=== PATIENT | male | born 1990 | race Caucasian/White ===

== ENCOUNTER → 2017-05-15 16:09 | Emergency (ER) | payer OTHER ==
[2017-05-15 18:20] LABS: Hematocrit 39 % (42-52); Hemoglobin 13.1 g/dl (14.0-18.0); Mean Corpuscular HGB Conc 34 g/dl (31-36); Mean Corpuscular Hemoglobin 29 pg (27-31); Mean Corpuscular Volume 85 fL (80-94); Mean Platelet Volume 7 um3 (7.4-10.4); Red Blood Count 4.55 10^6/ul (4.0-5.4); Red Cell Distribution Width 13 % (10.5-15)
[2017-05-15 18:34] LABS: ALT 109 U/L (7-52); AST 39 U/L (13-39); Albumin 4.3 g/dL (3.2-5.2); Alkaline Phosphatase 97 U/L (34-104); Anion Gap 4 mmol/L (2-11); BUN/Creatinine Ratio 15.6 (8-20); Blood Urea Nitrogen 10 mg/dL (6-24); CO2 Carbon Dioxide 31 mmol/L (22-32); Calcium 9.3 mg/dL (8.6-10.3); Chloride 102 mmol/L (101-111); EGFR African American 191.5 (>60); EGFR Non-African American 148.9 (>60); Glucose 113 mg/dL (70-100); Potassium 3.6 mmol/L (3.5-5.0); Sodium 137 mmol/L (133-145); Total Protein 7.3 g/dL (6.4-8.9)
[2017-05-15 19:13] LABS: Acetaminophen < 15 mcg/mL; Alcohol < 10 mg/dL (<10); Salicylate < 2.50 mg/dL (<30)
[2017-05-15 19:24] LABS: TSH (Thyroid Stimulating Horm) 1.23 mcIU/mL (0.34-5.60)
[2017-05-15 22:33] VITALS: BP 114/59
--- NOTE | 2017-05-18 13:35 | ED ---
Bettie Branch Edward, scribed for Mario Ignacio MD on 05/15/17 at 1623 . Psychiatric Complaint - HPI Summary HPI Summary: 26 y/o male BIBA c/o depression. Pt's mom called the parts sales manager. Pt states he was moving when she did so. Pt reports that he broke up with his girlfriend recently which aggravated his depression. Pt also states he has been arrested 6 times recently. PMHx depression. Pt denies recent use of recreational drugs. Denies EtOH use. Smoker. - History Of Current Complaint Chief Complaint: EDMentalHealth Time Seen by Provider: 05/15/17 16:17 Hx Obtained From: Patient Character: Depressed Aggravating Factor(s): Recent Stress Alleviating Factor(s): Nothing Related History: Positive For: Prior Psychiatric Issues - Depression - Allergies/Home Medications Allergies/Adverse Reactions: Allergies Allergy/AdvReac Type Severity Reaction Status Date / Time No Known Allergies Allergy Verified 02/25/16 08:31 PMH/Surg Hx/FS Hx/Imm Hx Previously Healthy: No Endocrine/Hematology History: Denies: Hx Diabetes, Hx Thyroid Disease Cardiovascular History: Denies: Hx Hypertension Respiratory History: Reports: Hx Asthma Denies: Hx Chronic Obstructive Pulmonary Disease (COPD), Hx Seasonal Allergies GI History: Denies: Hx Ulcer Sensory History: Reports: Hx Contacts or Glasses Denies: Other Sensory Impairments Opthamlomology History: Reports: Hx Contacts or Glasses Denies: Other Sensory Impairments Psychiatric History: Reports: Hx Community Mental Health Tx, Hx Substance Abuse Denies: Hx Eating Disorder, Hx of Violent Episodes Against Others - Surgical History Hx Anesthesia Reactions: No Infectious Disease History: Reports: Hx Hepatitis - Hep C Denies: Hx Clostridium Difficile, Hx Human Immunodeficiency Virus (HIV), Hx of Known/Suspected MRSA, Hx Shingles, Hx Tuberculosis, Hx Known/Suspected VRE, Hx Known/Suspected VRSA, History Other Infectious Disease - Family History Known Family History: Positive: Diabetes - Social History Alcohol Use: Occasionally Hx Substance Use: Yes Substance Use Type: Reports: Heroin Substance Use Comment - Amount & Last Used: Hx speed Hx Tobacco Use: Yes Smoking Status (MU): Current Every Day Smoker Type: Cigarettes Amount Used/How Often: 1/2 ppd Length of Time of Smoking/Using Tobacco: 10 years Have You Smoked in the Last Year: Yes Review of Systems Constitutional: Negative Eyes: Negative ENT: Negative Cardiovascular: Negative Respiratory: Negative Gastrointestinal: Negative Genitourinary: Negative Musculoskeletal: Negative Skin: Negative Neurological: Negative Positive: Depressed All Other Systems Reviewed And Are Negative: Yes Physical Exam - Summary Physical Exam Summary: VITAL SIGNS: Reviewed. GENERAL: Patient is a well-developed and nourished male who is lying comfortable in the stretcher. Patient is not in any acute respiratory distress. HEAD AND FACE: No signs of trauma. No ecchymosis, hematomas or skull depressions. No sinus tenderness. EYES: PERRLA, EOMI x 2, No injected conjunctiva, no nystagmus. EARS: Hearing grossly intact. Ear canals and tympanic membranes are within normal limits. MOUTH: Dry oral mucosa. NECK: Supple, trachea is midline, no adenopathy, no JVD, no carotid bruit, no c- spine tenderness, neck with full ROM. CHEST: Symmetric, no tenderness at palpation LUNGS: Clear to auscultation bilaterally. No wheezing or crackles. CVS: Regular rate and rhythm, S1 and S2 present, no murmurs or gallops appreciated. ABDOMEN: Soft, non-tender. No signs of distention. No rebound no guarding, and no masses palpated. Bowel sounds are normal. EXTREMITIES: FROM in all major joints, no edema, no cyanosis or clubbing. NEURO: Alert and oriented x 3. No acute neurological deficits. Speech is normal and follows commands. SKIN: Dry and warm Psych: Flat affect, depressed. Triage Information Reviewed: Yes Vital Signs On Initial Exam: Initial Vitals Temp Pulse Resp BP Pulse Ox 97.7 F 67 18 125/71 100 05/15/17 16:16 05/15/17 16:16 05/15/17 16:16 05/15/17 16:16 05/15/17 16:16 Vital Signs Reviewed: Yes Diagnostics - Vital Signs Vital Signs Temp Pulse Resp BP Pulse Ox 05/15/17 22:44 98.6 F 58 18 114/59 100 05/15/17 22:32 98.6 F 58 16 114/59 100 05/15/17 16:16 97.7 F 67 18 125/71 100 - Laboratory Lab Results: Lab Results 05/15/17 05/15/17 Range/Units 17:51 17:51 WBC 7.0 (3.5-10.8) 10^3/ul RBC 4.55 (4.0-5.4) 10^6/ul Hgb 13.1 L (14.0-18.0) g/dl Hct 39 L (42-52) % MCV 85 (80-94) fL MCH 29 (27-31) pg MCHC 34 (31-36) g/dl RDW 13 (10.5-15) % Plt Count 294 (150-450) 10^3/ul MPV 7 L (7.4-10.4) um3 Neut % (Auto) 40.7 (38-83) % Lymph % (Auto) 44.4 (25-47) % [place] % (Auto) 6.4 (1-9) % Eos % (Auto) 7.6 H (0-6) % Baso % (Auto) 0.9 (0-2) % Absolute Neuts (auto) 2.8 (1.5-7.7) 10^3/ul Absolute Lymphs (auto) 3.1 (1.0-4.8) 10^3/ul Absolute Monos (auto) 0.4 (0-0.8) 10^3/ul Absolute Eos (auto) 0.5 (0-0.6) 10^3/ul Absolute Basos (auto) 0.1 (0-0.2) 10^3/ul Absolute Nucleated RBC 0 10^3/ul Nucleated RBC % 0 Sodium 137 (133-145) mmol/L Potassium 3.6 (3.5-5.0) mmol/L Chloride 102 (101-111) mmol/L Carbon Dioxide 31 (22-32) mmol/L Anion Gap 4 (2-11) mmol/L BUN 10 (6-24) mg/dL Creatinine 0.64 L (0.67-1.17) mg/dL Est GFR ( Amer) 191.5 (>60) Est GFR (Non-Af Amer) 148.9 (>60) BUN/Creatinine Ratio 15.6 (8-20) Glucose 113 H (70-100) mg/dL Calcium 9.3 (8.6-10.3) mg/dL Total Bilirubin 0.30 (0.2-1.0) mg/dL AST 39 (13-39) U/L ALT 109 H (7-52) U/L Alkaline Phosphatase 97 (34-104) U/L Total Protein 7.3 (6.4-8.9) g/dL Albumin 4.3 (3.2-5.2) g/dL Globulin 3.0 (2-4) g/dL Albumin/Globulin Ratio 1.4 (1-3) TSH 1.23 (0.34-5.60) mcIU/mL Salicylates < 2.50 (<30) mg/dL Acetaminophen < 15 mcg/mL Serum Alcohol < 10 (<10) mg/dL Result Diagrams: 05/15/17 17:51 05/15/17 17:51 Lab Statement: Any lab studies that have been ordered have been reviewed, and results considered in the medical decision making process. Course/Dx - Course Assessment/Plan: 26 y/o male BIBA c/o depression. Pt's mom called the parts sales manager. Pt states he was moving when she did so. Pt reports that he broke up with his girlfriend recently which aggravated his depression. Pt also states he has been arrested 6 times recently. PMHx depression. Pt denies recent use of recreational drugs. Denies EtOH use. Smoker. Blood tests without any significant abnormalities. Pt is medically cleared. Pt is awaiting MHU evaluation. Pt will be signed out to Dr. Lentz at shift change. - Differential Dx/Clinical Impression Differential Diagnosis/HQI/PQRI: Positive: Anxiety, Depression, Suicidal Ideation Provider Diagnosis: Depression Discharge - Discharge Plan Condition: Stable Disposition: OTHER Discharge Disposition Comment: Pt will be signed out to the evening Patient Education Materials: Suicide Prevention for Adults (ED) Referrals: [facility] [Outside] [facility] [Outside] [facility] [Outside] - 05/17/17 Zenon Lainez MD [Medical Doctor] - As Soon As Possible No Primary Care Phys,NOPCP [Primary Care Provider] - Additional Instructions: Per completion of a mental health evaluation, you are cleared for release and do not require inpatient psychiatric hospitalization at this time. Please go to nearest emergency room or call 911 if safety concerns arise or condition worsens. IMPORTANT PHONE NUMBERS: [facility] Behavioral Services Unit: [facility] Emergency Room Flex Unit: Suicide Prevention and Crisis Services: National Suicide Prevention Lifeline: [phone]) 351-PXQA (9289) Crisis Text Line: Text HOME to 059017 [employer] [facility]: [employer] Mental Health Association: [facility]: [facility] ([facility]) Outpatient Services: [facility]: [phone] [facility] [employer]: [place] [facility]: [facility] Police:~ [employer] Sheriff: [place] Police Department: REFERRALS: OUTPATIENT SERVICES You have been referred to [facility]. It is our recommendation that you call [facility] to secure an appointment on their next business day. Adults can schedule their first appointment by phone or in person during walk-in hours. Walk-in hours occur Wednesday - Wednesday until 2:30pm. If you require further assistance connecting to outpatient providers, please contact our Mental Health Unit at . [facility] [address], [place] [id number] [facility] [address], [place] [id number] [facility] ([facility]) [address] [place] [phone] Substance abuse evaluation recommended. Please consider treatment at either [facility] or [facility] ([facility]). The [facility] provides information, education, counseling and referral services for area residents and organizations. Should you feel that you are in need of detoxification and rehabilitation, please contact their office. Walk-in evaluations are available on a first-come, first- served basis. The current walk-in hours are Wednesday 8:30am-6:00pm and Wednesday 8:30am-11:00am. [facility] provides both outpatient and residential services. If you are unsure of the level of care needed, please call to schedule an appointment for an individual assessment. [facility] also offers Treatment On Demand; individuals can go to the Outpatient Facility located in [place] on a "walk in as needed basis". Additionally, outpatient counselors are available by phone to offer support during regular business hours Wednesday-Wednesday from 8:30am-7:00pm. EMERGENCY HOUSING Department of [employer] [address] [place] [id number] [facility] [address] [place] [id number] To explore emergency housing options, you should present to the [facility] [employer]. The [facility] [employer] is open Wednesday-Wednesday from 8 :30am to 4:30pm. Should you require housing assistance during after-hours or on a weekend, present to the [facility]. Please be aware that you must arrive early to the [facility] if you would like to secure a bed for the night. The documentation as recorded by the Bettie sparks Edward accurately reflects the service I personally performed and the decisions made by , Mario Ignacio MD.
== END ==
LOC: ED 16:09
DX: F32.9 Major depressive disorder, single episode, unspecified (principal); J45.909 Unspecified asthma, uncomplicated; F11.90 Opioid use, unspecified, uncomplicated; F17.210 Nicotine dependence, cigarettes, uncomplicated
CPT/HCPCS: 36415; 80053; 80320; 80329; 84443; 85025; 99284; G0480

== ENCOUNTER 2017-05-20 21:32 | Inpatient (IN) | payer OTHER ==
[2017-05-20 22:22] LABS: Hematocrit 39 % (42-52); Hemoglobin 12.9 g/dl (14.0-18.0); Mean Corpuscular HGB Conc 33 g/dl (31-36); Mean Corpuscular Hemoglobin 28 pg (27-31); Mean Corpuscular Volume 85 fL (80-94); Mean Platelet Volume 7 um3 (7.4-10.4); Red Blood Count 4.57 10^6/ul (4.0-5.4); Red Cell Distribution Width 14 % (10.5-15); White Blood Count 7.5 10^3/ul (3.5-10.8)
[2017-05-20 22:24] LABS: Urine Bilirubin Negative (Negative); Urine Glucose Negative (Negative); Urine Nitrite Negative (Negative)
[2017-05-20 22:40] LABS: ALT 42 U/L (7-52); AST 26 U/L (13-39); Albumin 4.4 g/dL (3.2-5.2); Alkaline Phosphatase 91 U/L (34-104); Anion Gap 6 mmol/L (2-11); BUN/Creatinine Ratio 27.7 (8-20); Blood Urea Nitrogen 18 mg/dL (6-24); CO2 Carbon Dioxide 27 mmol/L (22-32); Calcium 9.5 mg/dL (8.6-10.3); Chloride 103 mmol/L (101-111); EGFR African American 188.1 (>60); EGFR Non-African American 146.3 (>60); Globulin 2.8 g/dL (2-4); Glucose 88 mg/dL (70-100); Potassium 4.1 mmol/L (3.5-5.0); Sodium 136 mmol/L (133-145); Total Protein 7.2 g/dL (6.4-8.9)
[2017-05-20 22:42] LABS: Benzodiazepine Urine Screen None Detected (None Detect)
[2017-05-20 23:01] LABS: Acetaminophen < 15 mcg/mL; Alcohol < 10 mg/dL (<10); Salicylate < 2.50 mg/dL (<30)
[2017-05-20 23:16] LABS: TSH (Thyroid Stimulating Horm) 0.97 mcIU/mL (0.34-5.60)
--- NOTE | 2017-05-21 02:53 | ED ---
Joslyn Branch Thomas, scribed for Eder Vieyra on 05/20/17 at 2250 . Psychiatric Complaint - HPI Summary HPI Summary: The pt is a 26 y/o M BIBA after EMS was called by his parents. He says he is depressed. Patient admits to LSD use today as well as all sorts of drugs in the last 14 years. He denies ETOH or drug use other than LSD today. He denies SI, HI, and auditory hallucinations. - History Of Current Complaint Chief Complaint: EDMentalHealth Time Seen by Provider: 05/20/17 21:39 Hx Obtained From: Patient, EMS, Medical Records Onset/Duration: Still Present Timing: Constant Severity Currently: Moderate Character: Depressed Aggravating Factor(s): Other - Unknown Alleviating Factor(s): Other - Unknown Associated Signs And Symptoms: Positive: Negative. Negative: Hallucinating Has Suicidal: Denies: Thoughts Has Homicidal: Denies: Thoughts Recent Stressor(s): Unknown Ingestion History: Type/Name Of Drug - Admits to LSD use today - Allergies/Home Medications Allergies/Adverse Reactions: Allergies Allergy/AdvReac Type Severity Reaction Status Date / Time No Known Allergies Allergy Verified 02/25/16 08:31 PMH/Surg Hx/FS Hx/Imm Hx Previously Healthy: No Endocrine/Hematology History: Denies: Hx Diabetes, Hx Thyroid Disease Cardiovascular History: Denies: Hx Hypertension Respiratory History: Reports: Hx Asthma Denies: Hx Chronic Obstructive Pulmonary Disease (COPD), Hx Seasonal Allergies GI History: Denies: Hx Ulcer Sensory History: Reports: Hx Contacts or Glasses Denies: Other Sensory Impairments Opthamlomology History: Reports: Hx Contacts or Glasses Denies: Other Sensory Impairments Psychiatric History: Reports: Hx Community Mental Health Tx, Hx Substance Abuse Denies: Hx Eating Disorder, Hx of Violent Episodes Against Others - Surgical History Hx Anesthesia Reactions: No Infectious Disease History: No Infectious Disease History: Reports: Hx Hepatitis - Hep C Denies: Hx Clostridium Difficile, Hx Human Immunodeficiency Virus (HIV), Hx of Known/Suspected MRSA, Hx Shingles, Hx Tuberculosis, Hx Known/Suspected VRE, Hx Known/Suspected VRSA, History Other Infectious Disease, Traveled Outside the [place] in Last 30 Days - Family History Known Family History: Positive: Diabetes - Social History Alcohol Use: Occasionally Hx Substance Use: Yes Substance Use Type: Reports: Heroin Substance Use Comment - Amount & Last Used: Hx speed/LSD Hx Tobacco Use: Yes Smoking Status (MU): Current Every Day Smoker Type: Cigarettes Amount Used/How Often: 1/2 ppd Length of Time of Smoking/Using Tobacco: 10 years Have You Smoked in the Last Year: Yes Review of Systems Negative: Fever Positive: Depressed, Other - LSD use; NEGATIVE: SI/HI, auditory hallucinations All Other Systems Reviewed And Are Negative: Yes Physical Exam - Summary Physical Exam Summary: Appearance: Well appearing, no pain distress. Skin: Warm, dry, reflects adequate perfusion. Head/face: Normal. Eyes: EOMI, GLENDY. ENT: Normal. Neck: Supple, nontender. Respiratory: CTA, breath sounds present. Cardiovascular: RRR, pulses symmetrical. Abdomen: Nontender, soft. Bowel: Present. Musculoskeletal: Normal, strength/ROM intact. Neuro: Normal, sensory motor intact, A&Ox3. PSYCHIATRIC: depressed affect. Triage Information Reviewed: Yes Vital Signs On Initial Exam: Initial Vitals Temp Pulse Resp BP Pulse Ox 97.5 F 60 16 118/70 98 05/20/17 21:35 05/20/17 21:35 05/20/17 21:35 05/20/17 21:35 05/20/17 21:35 Vital Signs Reviewed: Yes Diagnostics - Vital Signs Vital Signs Temp Pulse Resp BP Pulse Ox 05/20/17 21:35 97.5 F 60 16 118/70 98 - Laboratory Lab Results: Lab Results 05/20/17 05/20/17 05/20/17 Range/Units 22:05 22:05 22:10 WBC (3.5-10.8) 10^3/ul RBC (4.0-5.4) 10^6/ul Hgb (14.0-18.0) g/dl Hct (42-52) % MCV (80-94) fL MCH (27-31) pg MCHC (31-36) g/dl RDW (10.5-15) % Plt Count (150-450) 10^3/ul MPV (7.4-10.4) um3 Neut % (Auto) (38-83) % Lymph % (Auto) (25-47) % [place] % (Auto) (1-9) % Eos % (Auto) (0-6) % Baso % (Auto) (0-2) % Absolute Neuts (auto) (1.5-7.7) 10^3/ul Absolute Lymphs (auto) (1.0-4.8) 10^3/ul Absolute Monos (auto) (0-0.8) 10^3/ul Absolute Eos (auto) (0-0.6) 10^3/ul Absolute Basos (auto) (0-0.2) 10^3/ul Absolute Nucleated RBC 10^3/ul Nucleated RBC % Sodium 136 (133-145) mmol/L Potassium 4.1 (3.5-5.0) mmol/L Chloride 103 (101-111) mmol/L Carbon Dioxide 27 (22-32) mmol/L Anion Gap 6 (2-11) mmol/L BUN 18 (6-24) mg/dL Creatinine 0.65 L (0.67-1.17) mg/dL Est GFR ( Amer) 188.1 (>60) Est GFR (Non-Af Amer) 146.3 (>60) BUN/Creatinine Ratio 27.7 H (8-20) Glucose 88 (70-100) mg/dL Calcium 9.5 (8.6-10.3) mg/dL Total Bilirubin 0.50 (0.2-1.0) mg/dL AST 26 (13-39) U/L ALT 42 (7-52) U/L Alkaline Phosphatase 91 (34-104) U/L Total Protein 7.2 (6.4-8.9) g/dL Albumin 4.4 (3.2-5.2) g/dL Globulin 2.8 (2-4) g/dL Albumin/Globulin Ratio 1.6 (1-3) TSH Pending Urine Color Yellow Urine Appearance Cloudy Urine pH 5.0 (5-9) Ur Specific [place] 1.030 (1.010-1.030) Urine Protein Negative (Negative) Urine Ketones Trace H (Negative) Urine Blood Negative (Negative) Urine Nitrate Negative (Negative) Urine Bilirubin Negative (Negative) Urine Urobilinogen Negative (Negative) Ur Leukocyte Esterase Negative (Negative) Urine Glucose Negative (Negative) Salicylates Pending Urine Opiates Screen None detected (None Detect) Acetaminophen Pending Ur Barbiturates Screen None detected (None Detect) Ur Phencyclidine Scrn None detected (None Detect) Ur Amphetamines Screen None detected (None Detect) U Benzodiazepines Scrn None detected (None Detect) Urine Cocaine Screen Presumptive positive H (None Detect) U Cannabinoids Screen Presumptive positive H (None Detect) Serum Alcohol Pending 05/20/17 Range/Units 22:10 WBC 7.5 (3.5-10.8) 10^3/ul RBC 4.57 (4.0-5.4) 10^6/ul Hgb 12.9 L (14.0-18.0) g/dl Hct 39 L (42-52) % MCV 85 (80-94) fL MCH 28 (27-31) pg MCHC 33 (31-36) g/dl RDW 14 (10.5-15) % Plt Count 366 (150-450) 10^3/ul MPV 7 L (7.4-10.4) um3 Neut % (Auto) 46.5 (38-83) % Lymph % (Auto) 35.8 (25-47) % [place] % (Auto) 9.2 H (1-9) % Eos % (Auto) 7.8 H (0-6) % Baso % (Auto) 0.7 (0-2) % Absolute Neuts (auto) 3.5 (1.5-7.7) 10^3/ul Absolute Lymphs (auto) 2.7 (1.0-4.8) 10^3/ul Absolute Monos (auto) 0.7 (0-0.8) 10^3/ul Absolute Eos (auto) 0.6 (0-0.6) 10^3/ul Absolute Basos (auto) 0.1 (0-0.2) 10^3/ul Absolute Nucleated RBC 0.01 10^3/ul Nucleated RBC % 0.1 Sodium (133-145) mmol/L Potassium (3.5-5.0) mmol/L Chloride (101-111) mmol/L Carbon Dioxide (22-32) mmol/L Anion Gap (2-11) mmol/L BUN (6-24) mg/dL Creatinine (0.67-1.17) mg/dL Est GFR ( Amer) (>60) Est GFR (Non-Af Amer) (>60) BUN/Creatinine Ratio (8-20) Glucose (70-100) mg/dL Calcium (8.6-10.3) mg/dL Total Bilirubin (0.2-1.0) mg/dL AST (13-39) U/L ALT (7-52) U/L Alkaline Phosphatase (34-104) U/L Total Protein (6.4-8.9) g/dL Albumin (3.2-5.2) g/dL Globulin (2-4) g/dL Albumin/Globulin Ratio (1-3) TSH Urine Color Urine Appearance Urine pH (5-9) Ur Specific [place] (1.010-1.030) Urine Protein (Negative) Urine Ketones (Negative) Urine Blood (Negative) Urine Nitrate (Negative) Urine Bilirubin (Negative) Urine Urobilinogen (Negative) Ur Leukocyte Esterase (Negative) Urine Glucose (Negative) Salicylates Urine Opiates Screen (None Detect) Acetaminophen Ur Barbiturates Screen (None Detect) Ur Phencyclidine Scrn (None Detect) Ur Amphetamines Screen (None Detect) U Benzodiazepines Scrn (None Detect) Urine Cocaine Screen (None Detect) U Cannabinoids Screen (None Detect) Serum Alcohol Result Diagrams: 05/20/17 22:10 05/20/17 22:10 Lab Statement: Any lab studies that have been ordered have been reviewed, and results considered in the medical decision making process. Course/Dx - Course Course Of Treatment: Cleared for MHE at 23:52. Assessment/Plan: Patient admitted to [facility]. - Differential Dx/Clinical Impression Provider Diagnosis: nonspecific psychosis Discharge - Discharge Plan Condition: Fair Disposition: ADMITTED TO [facility] Referrals: Zenon Lainez MD [Primary Care Provider] - The documentation as recorded by the Joslyn sparks Thomas accurately reflects the service I personally performed and the decisions made by Azalia moseley Emmanuel.
[2017-05-21] MEDS ORDERED: Acetaminophen TAB* 325 MG PO PRN ×2 (03:56→16:34)
[2017-05-21] MEDS ORDERED: Nicotine Inhaler* 10 MG AMP INH PRN ×2 (03:56→16:34)
[2017-05-21] MEDS ORDERED: Al Hydrox/Mg Hydrox/Simet LIQ* 30 ML UDC PO PRN ×2 (03:56→16:34)
[2017-05-21] MEDS: Vitamin THERAPEUTIC TAB PO SCH (09:50)
[2017-05-21] MEDS: Nicotine PATCH 21 MG/24 HR* PATCH TRANSDERM SCH (09:51)
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
[2017-05-21] MEDS ORDERED: Nicotine GUM* 2 MG PO PRN (16:34)
[2017-05-21 18:15] LABS: HDL Cholesterol 33.8 mg/dL
[2017-05-21] MEDS: traZODone TAB* 100 MG PO SCH (21:06)
[2017-05-21] MEDS: Nicotine Patch Removal NOTE PATCH OFF SCH (21:07)
[2017-05-22] MEDS: Mouth Piece, Nicotine* 1 EACH CARTRIDGE INH ONE ×2 (05:20→08:55)
[2017-05-22] MEDS: buPROPion SR TAB.SR* 100 MG PO SCH ×2 (07:41→14:42)
[2017-05-22] MEDS: Buprenorphine/Naloxone 8-2 MG SL TAB* 1 TAB PO SCH (08:54)
[2017-05-22] MEDS ORDERED: Mouth Piece, Nicotine* 1 EACH CARTRIDGE ONE (08:55)
[2017-05-22] MEDS ORDERED: Vitamin THERAPEUTIC TAB PO SCH (09:00)
[2017-05-22] MEDS: Nicotine PATCH 21 MG/24 HR* PATCH TRANSDERM SCH (09:09)
[2017-05-22] MEDS: Vitamin THERAPEUTIC TAB PO SCH (09:10)
--- NOTE | 2017-05-22 16:45 | PN ---
Subjective - Subjective Service Type: 82378 Hosp care 15 min low complexity Subjective: Patient is somewhat bizarre and diffuse during our interaction. Not sure where he will live or what provider he will follow up with after discharge, particularly for continuation of his suboxone therapy. He denies SI and staff does not report any behavioral issues. Objective - Appearance Appearance: Well Developed/Nourished Dysmorphic Features: No Hygiene: Normal Grooming: Well Kept - Behavior Psychomotor Activities: Normal Exhibits Abnormal Movement: No - Attitude and Relatedness Attitude and Relatedness: Cooperative Eye Contact: Fair - Speech Quality: Unpressured Latencies: Normal Quantity: Appropriate - Mood Patient's Decription of Mood: "Fine" - Affect Observed Affect: Fair Affect Consistent with: Euthymia - Thought Process Patient's Thought Process: Coherent Thought Content: No Passive Wish, No Suicidal Planning, No Homicidal Ideation, No Paranoid Ideation - Sensorium Experiencing Hallucinations: No, Sensorium is Clear Type of Hallucinations: Visual: No, Auditory: No, Command: No - Level of Consciousness Level of Consciousness: Alert Orientation: Yes Intact, Yes Orientated to Time, Yes Orientated to Place, Yes Orientated to Person - Impulse Control Impulse Control: Tenuous - Insight and Judgement Insight and Judgement: Fair - Group Participation Particating in Group Activities: Yes - Medication Management Medication Management Adherence: Yes Assessment - Assessment Merits Inpatient Hospitalization: For Immediate Safety, For Stabilization Inpatient DSM-IV Dx: Unspecified Mood DO Clinical Impression: 26 y.o. single, white male with a history of active polysubstance use patterns ( cocaine, hallucinogens, opioids, cannabis) and mood instability arrives on a voluntary basis seeking inpatient psychiatric treatment for SI with plan to jump into a gorge. Plan - Plan Treatment Plan: Name: DAWSON LEIGH Birthdate: 1990 [id number] Patient treated with suboxone, bupropion and trazodone therapies. Needs SW assistance with housing and follow up outpatient care. Likely in need of substance abuse rehabilitation. Continue inpatient treatment. Continued Medication Management: Different Medication Medications: Current Medications Acetaminophen (Tylenol Tab*) 650 mg PO Q4H PRN PRN Reason: PAIN or TEMP > 101 F Al Hydrox/Mg Hydrox/Simethicone (Maalox Plus*) 30 ml PO Q4H PRN PRN Reason: INDIGESTION Buprenorphine/Naloxone (Suboxone 8-2 Mg Sl Tab*) 1 tab.sl PO DAILY [facility] Last Admin: 05/22/17 08:54 Dose: 1 tab.sl Bupropion HCl (Wellbutrin Sr Tab*) 100 mg PO BID@0700,1400 [facility] Last Admin: 05/22/17 14:42 Dose: 100 mg Multivitamins (Theragran Tab*) 1 tab PO DAILY [facility] Last Admin: 05/22/17 09:10 Dose: Not Given Nicotine (Nicotine Inhaler*) 10 mg INH Q2H PRN PRN Reason: CRAVING Last Admin: 05/22/17 08:55 Dose: 10 mg Nicotine (Nicotine Patch 21 Mg/24 Hr*) 1 patch TRANSDERM DAILY [facility] Last Admin: 05/22/17 09:09 Dose: Not Given Nicotine Polacrilex (Nicotine Gum*) 2 mg PO Q2H PRN PRN Reason: CRAVING Pharmacy Profile Note (Nicotine Patch Removal Note*) 1 note PATCH OFF 2100 [facility] Last Admin: 05/21/17 21:07 Dose: Not Given Trazodone HCl (Desyrel Tab*) 100 mg PO BEDTIME [facility] Last Admin: 05/21/17 21:06 Dose: 100 mg - Discharge Plan Discharge Plan: Inpatient Hospitalization
[2017-05-22] MEDS: Nicotine Patch Removal NOTE PATCH OFF SCH (21:14)
[2017-05-22] MEDS: traZODone TAB* 100 MG PO SCH (21:22)
[2017-05-23] MEDS: Vitamin THERAPEUTIC TAB PO SCH (09:24)
[2017-05-23] MEDS: Nicotine GUM* 2 MG PO PRN (09:24)
[2017-05-23] MEDS: Nicotine PATCH 21 MG/24 HR* PATCH TRANSDERM SCH (09:25)
[2017-05-23] MEDS: Buprenorphine/Naloxone 8-2 MG SL TAB* 1 TAB PO SCH (09:26)
[2017-05-23] MEDS: buPROPion SR TAB.SR* 100 MG PO SCH ×2 (11:46→14:12)
[2017-05-23] MEDS: traZODone TAB* 100 MG PO SCH (20:50)
[2017-05-23] MEDS: Nicotine Patch Removal NOTE PATCH OFF SCH (20:50)
[2017-05-24] MEDS: Vitamin THERAPEUTIC TAB PO SCH (10:08)
[2017-05-24] MEDS: buPROPion SR TAB.SR* 100 MG PO SCH ×2 (10:08→14:50)
[2017-05-24] MEDS: Buprenorphine/Naloxone 8-2 MG SL TAB* 1 TAB PO SCH (10:08)
[2017-05-24] MEDS: Nicotine PATCH 21 MG/24 HR* PATCH TRANSDERM SCH (10:08)
--- NOTE | 2017-05-24 11:54 | PN ---
Subjective - Subjective Service Type: 09082 Hosp care 15 min low complexity Subjective: Patient continues to improve in regard to clarity of thought and in appropriateness when interacting with others. Patient's TP is linear and goal directed. Patient's affect is full and eye contact is appropriate. He is future oriented in his desire to maintain his sobriety from IV Heroin. He reports due to his insurance ending, he hadn't seen Dr. Lainez for recent mx with Suboxone. He reports his insurance has been re-started and he will likely return to Dr. Lainez for Suboxone mx. Patient informed unit SW will work to make that appt. Patient reports desire to get re-connected outpt drug rehab with care. He reports a good visit from his sister and his happy with his family support. Patient reports good benefit to mood and energy level on Wellbutrin. He fair sleep and appetite. He denies med s/e's. He reports no SI/HI or AH/VH over the weekend nor today. He has had no behavioral issues on the unit. Assessment - Assessment Merits Inpatient Hospitalization: For Immediate Safety, For Stabilization Inpatient DSM-IV Dx: ASSESSMENT: . 1. Substance induced mood d/o. 2. LSD use d/o, severe. 3. MDMA use d/o, severe. 4. Cocaine use d/o , severe. 5. Cannabis use d/o, severe. 6. Unspecified PD, cluster B traits Plan - Plan Treatment Plan: Name: DAWSON LEIGH Birthdate: 1990 [id number] PLAN: ------ 1. Continue admission to [facility] for safety and symptom mx. 2. Continue Wellbutrin at 100mg po BID for depressive symptoms. 3. Continue Trazodone 100mg po qhs for insomnia. 4. Continue Suboxone at home dose of 8-2 SL daily for Cravings of Opioid use d/ o. 5. Continue compiling collateral information from family and outpt providers. 6. Patient to participate in milieu activities and groups. Continued Medication Management: Start Medication Medications: Current Medications Acetaminophen (Tylenol Tab*) 650 mg PO Q4H PRN PRN Reason: PAIN or TEMP > 101 F Al Hydrox/Mg Hydrox/Simethicone (Maalox Plus*) 30 ml PO Q4H PRN PRN Reason: INDIGESTION Buprenorphine/Naloxone (Suboxone 8-2 Mg Sl Tab*) 1 tab.sl PO DAILY [facility] Last Admin: 05/24/17 10:08 Dose: 1 tab.sl Bupropion HCl (Wellbutrin Sr Tab*) 100 mg PO BID@0700,1400 [facility] Last Admin: 05/24/17 10:08 Dose: 100 mg Multivitamins (Theragran Tab*) 1 tab PO DAILY [facility] Last Admin: 05/24/17 10:08 Dose: 1 tab Nicotine (Nicotine Inhaler*) 10 mg INH Q2H PRN PRN Reason: CRAVING Last Admin: 05/22/17 08:55 Dose: 10 mg Nicotine (Nicotine Patch 21 Mg/24 Hr*) 1 patch TRANSDERM DAILY [facility] Last Admin: 05/24/17 10:08 Dose: 1 patch Nicotine Polacrilex (Nicotine Gum*) 2 mg PO Q2H PRN PRN Reason: CRAVING Last Admin: 05/23/17 09:24 Dose: 2 mg Pharmacy Profile Note (Nicotine Patch Removal Note*) 1 note PATCH OFF 2099 [facility] Last Admin: 05/23/17 20:50 Dose: 1 note Trazodone HCl (Desyrel Tab*) 100 mg PO BEDTIME [facility] Last Admin: 05/23/17 20:50 Dose: 100 mg - Discharge Plan Discharge Plan: Drug/Alcohol Rehab Outpatient [facility]
[2017-05-24] MEDS: Nicotine GUM* 2 MG PO PRN (15:23)
[2017-05-24] MEDS: traZODone TAB* 100 MG PO SCH (20:45)
[2017-05-24] MEDS: Nicotine Patch Removal NOTE PATCH OFF SCH (20:46)
[2017-05-25] MEDS: Nicotine PATCH 21 MG/24 HR* PATCH TRANSDERM SCH (07:55)
[2017-05-25] MEDS: Vitamin THERAPEUTIC TAB PO SCH (07:55)
[2017-05-25] MEDS: Buprenorphine/Naloxone 8-2 MG SL TAB* 1 TAB PO SCH (07:55)
[2017-05-25 10:05] VITALS: BP 103/68
[2017-05-25] MEDS: buPROPion SR TAB.SR* 100 MG PO SCH (11:49)
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
== END 2017-05-25 13:00 | disposition home or self-care (01) | DRG 774 ==
LOC: ED 21:32 → BSU 05-21 03:09
PROVIDERS: ADMIT Psychiatry & Neurology Psychiatry; ATTEND Psychiatry & Neurology Psychiatry
DX: F16.14 Hallucinogen abuse with hallucinogen-induced mood disorder (principal); F14.10 Cocaine abuse, uncomplicated; R45.851 Suicidal ideations; F12.10 Cannabis abuse, uncomplicated; F15.10 Other stimulant abuse, uncomplicated; F60.9 Personality disorder, unspecified; Z86.19 Personal history of other infectious and parasitic diseases; Z81.8 Family history of other mental and behavioral disorders; Z79.899 Other long term (current) drug therapy
CPT/HCPCS: 36415; 80053; 80061; 80307; 80320; 80329; 81003; 83036; 84443; 85025; 86703; 99222; 99231; 99238; A9270-GY; G0480

== ENCOUNTER 2017-06-04 22:39 | Inpatient (IN) | payer OTHER ==
[2017-06-04 23:25] LABS: Hematocrit 36 % (42-52); Hemoglobin 12.2 g/dl (14.0-18.0); Mean Corpuscular HGB Conc 33 g/dl (31-36); Mean Corpuscular Hemoglobin 29 pg (27-31); Mean Corpuscular Volume 85 fL (80-94); Mean Platelet Volume 7 um3 (7.4-10.4); Red Blood Count 4.26 10^6/ul (4.0-5.4); Red Cell Distribution Width 14 % (10.5-15); White Blood Count 5.8 10^3/ul (3.5-10.8)
[2017-06-04 23:39] LABS: ALT 30 U/L (7-52); AST 24 U/L (13-39); Albumin 3.8 g/dL (3.2-5.2); Alkaline Phosphatase 68 U/L (34-104); Anion Gap 4 mmol/L (2-11); BUN/Creatinine Ratio 27.6 (8-20); Blood Urea Nitrogen 16 mg/dL (6-24); CO2 Carbon Dioxide 26 mmol/L (22-32); Calcium 9.1 mg/dL (8.6-10.3); Chloride 106 mmol/L (101-111); EGFR African American 214.6 (>60); EGFR Non-African American 166.8 (>60); Globulin 2.7 g/dL (2-4); Glucose 88 mg/dL (70-100); Potassium 4.2 mmol/L (3.5-5.0); Sodium 136 mmol/L (133-145); Total Protein 6.5 g/dL (6.4-8.9)
[2017-06-04 23:41] LABS: Urine Bilirubin Negative (Negative); Urine Glucose Negative (Negative); Urine Nitrite Negative (Negative)
[2017-06-04 23:46] LABS: Acetaminophen < 15 mcg/mL; Alcohol < 10 mg/dL (<10); Salicylate < 2.50 mg/dL (<30)
[2017-06-04 23:58] LABS: Benzodiazepine Urine Screen None Detected (None Detect)
[2017-06-05 00:01] LABS: TSH (Thyroid Stimulating Horm) 1.15 mcIU/mL (0.34-5.60)
--- NOTE | 2017-06-05 01:11 | ED ---
Psychiatric Complaint - HPI Summary HPI Summary: Patient presents to the ED with feelings of suicide. He states he has been an IV drug user for 11 years with meth and heroin as drugs of choice. He is trying to get clean. He would like to go to rehab. He has most recently been on suboxone and meth. Last use 2 days ago. He denies any w/d symptoms at this time. Denies fevers, sweats or chills. Denies ETOH use. States to recently using IV heroin, LSD and others, was here a couple of weeks ago for mental health. when discharged "wasnt released with suboxone and I just lost my job". Patient states he feels suicidal, was going to jump off [employer]. has previous attempts in past. states he has pain in lower back and legs that is from "coming off suboxone." Has been on 8mg daily in the past. He states it was not working though and would like to get clean from "everything." - History Of Current Complaint Chief Complaint: EDMentalHealth Time Seen by Provider: 06/04/17 23:13 Hx Obtained From: Patient Onset/Duration: Sudden Onset Timing: Constant Severity Initially: Moderate Severity Currently: Moderate Character: Fearful, Anxious, Frustrated Aggravating Factor(s): Other - lost job Alleviating Factor(s): Nothing Has Suicidal: Reports: Thoughts Has Homicidal: Reports: Thoughts - Risk Factor(s) Completed Suicide Risk Factors: Negative - Allergies/Home Medications Allergies/Adverse Reactions: Allergies Allergy/AdvReac Type Severity Reaction Status Date / Time No Known Allergies Allergy Verified 06/04/17 22:48 PMH/Surg Hx/FS Hx/Imm Hx Previously Healthy: Yes Endocrine/Hematology History: Denies: Hx Diabetes, Hx Thyroid Disease Cardiovascular History: Denies: Hx Hypertension Respiratory History: Reports: Hx Asthma Denies: Hx Chronic Obstructive Pulmonary Disease (COPD), Hx Seasonal Allergies GI History: Denies: Hx Ulcer Sensory History: Denies: Hx Contacts or Glasses, Hx Hearing Aid, Other Sensory Impairments Opthamlomology History: Denies: Hx Contacts or Glasses, Other Sensory Impairments Psychiatric History: Reports: Hx Depression, Hx Inpatient Treatment, Hx Community Mental Health Tx, Hx Substance Abuse Denies: Hx Eating Disorder, Hx of Violent Episodes Against Others - Surgical History Hx Anesthesia Reactions: No Infectious Disease History: No Infectious Disease History: Reports: Hx Hepatitis - Hep C Denies: Hx Clostridium Difficile, Hx Human Immunodeficiency Virus (HIV), Hx of Known/Suspected MRSA, Hx Shingles, Hx Tuberculosis, Hx Known/Suspected VRE, Hx Known/Suspected VRSA, History Other Infectious Disease, Traveled Outside the [place] in Last 30 Days - Family History Known Family History: Positive: None, Diabetes Family History: R & n/C - Social History Occupation: Unemployed Lives: With Family Alcohol Use: Denies use, but alcohol in belongings. Alcohol Amount: UNKNOWN; PATIENT ASLEEP DURING ASSESSMENT Hx Substance Use: Yes Substance Use Type: Reports: Cocaine, Heroin, Marijuana, Synthetic Drugs Substance Use Comment - Amount & Last Used: Hx speed/LSD Hx Tobacco Use: Yes Smoking Status (MU): Current Every Day Smoker Type: Cigarettes Amount Used/How Often: 1/2 PPD Length of Time of Smoking/Using Tobacco: 10 years Have You Smoked in the Last Year: Yes Review of Systems Constitutional: Negative Cardiovascular: Negative Gastrointestinal: Negative Genitourinary: Negative Positive: no symptoms reported, see HPI Skin: Negative Positive: Anxious, Depressed All Other Systems Reviewed And Are Negative: Yes Physical Exam Triage Information Reviewed: Yes Vital Signs On Initial Exam: Initial Vitals Temp Pulse Resp BP Pulse Ox 98.7 F 76 14 125/72 100 06/04/17 22:44 06/04/17 22:44 06/04/17 22:44 06/04/17 22:44 06/04/17 22:44 Vital Signs Reviewed: Yes Appearance: Positive: Well-Appearing, Well-Nourished Skin: Positive: Warm, Skin Color Reflects Adequate Perfusion Head/Face: Positive: Normal Head/Face Inspection Eyes: Positive: EOMI, GLENDY, Conjunctiva Clear Respiratory/Lung Sounds: Positive: Clear to Auscultation, Breath Sounds Present Cardiovascular: Positive: Normal, RRR, Pulses are Symmetrical in both Upper and Lower Extremities Musculoskeletal: Positive: Strength/ROM Intact Neurological: Positive: Speech Normal Psychiatric: Positive: Anxious, Depressed - Toby Coma Scale Coma Scale Total: 15 Diagnostics - Vital Signs Vital Signs Temp Pulse Resp BP Pulse Ox 06/05/17 00:48 98.8 F 58 16 129/61 100 06/04/17 22:44 98.7 F 76 14 125/72 100 - Laboratory Lab Results: Lab Results 11/03/17 11/03/17 11/03/17 Range/Units 23:07 23:09 23:18 WBC 5.8 (3.5-10.8) 10^3/ul RBC 4.26 (4.0-5.4) 10^6/ul Hgb 12.2 L (14.0-18.0) g/dl Hct 36 L (42-52) % MCV 85 (80-94) fL MCH 29 (27-31) pg MCHC 33 (31-36) g/dl RDW 14 (10.5-15) % Plt Count 290 (150-450) 10^3/ul MPV 7 L (7.4-10.4) um3 Neut % (Auto) 39.2 (38-83) % Lymph % (Auto) 39.6 (25-47) % [place] % (Auto) 8.5 (1-9) % Eos % (Auto) 11.6 H (0-6) % Baso % (Auto) 1.1 (0-2) % Absolute Neuts (auto) 2.3 (1.5-7.7) 10^3/ul Absolute Lymphs (auto) 2.3 (1.0-4.8) 10^3/ul Absolute Monos (auto) 0.5 (0-0.8) 10^3/ul Absolute Eos (auto) 0.7 H (0-0.6) 10^3/ul Absolute Basos (auto) 0.1 (0-0.2) 10^3/ul Absolute Nucleated RBC 0 10^3/ul Nucleated RBC % 0.1 Sodium 136 (133-145) mmol/L Potassium 4.2 (3.5-5.0) mmol/L Chloride 106 (101-111) mmol/L Carbon Dioxide 26 (22-32) mmol/L Anion Gap 4 (2-11) mmol/L BUN 16 (6-24) mg/dL Creatinine 0.58 L (0.67-1.17) mg/dL Est GFR ( Amer) 214.6 (>60) Est GFR (Non-Af Amer) 166.8 (>60) BUN/Creatinine Ratio 27.6 H (8-20) Glucose 88 (70-100) mg/dL Calcium 9.1 (8.6-10.3) mg/dL Total Bilirubin 0.20 (0.2-1.0) mg/dL AST 24 (13-39) U/L ALT 30 (7-52) U/L Alkaline Phosphatase 68 (34-104) U/L Total Protein 6.5 (6.4-8.9) g/dL Albumin 3.8 (3.2-5.2) g/dL Globulin 2.7 (2-4) g/dL Albumin/Globulin Ratio 1.4 (1-3) TSH 1.15 (0.34-5.60) mcIU/mL Urine Color Urine Appearance Urine pH (5-9) Ur Specific [place] (1.010-1.030) Urine Protein (Negative) Urine Ketones (Negative) Urine Blood (Negative) Urine Nitrate (Negative) Urine Bilirubin (Negative) Urine Urobilinogen (Negative) Ur Leukocyte Esterase (Negative) Urine Glucose (Negative) Salicylates < 2.50 (<30) mg/dL Urine Opiates Screen None detected (None Detect) Acetaminophen < 15 mcg/mL Ur Barbiturates Screen None detected (None Detect) Ur Phencyclidine Scrn None detected (None Detect) Ur Amphetamines Screen None detected (None Detect) U Benzodiazepines Scrn None detected (None Detect) Urine Cocaine Screen None detected (None Detect) U Cannabinoids Screen None detected (None Detect) Serum Alcohol < 10 (<10) mg/dL 06/04/17 Range/Units 23:18 WBC (3.5-10.8) 10^3/ul RBC (4.0-5.4) 10^6/ul Hgb (14.0-18.0) g/dl Hct (42-52) % MCV (80-94) fL MCH (27-31) pg MCHC (31-36) g/dl RDW (10.5-15) % Plt Count (150-450) 10^3/ul MPV (7.4-10.4) um3 Neut % (Auto) (38-83) % Lymph % (Auto) (25-47) % [place] % (Auto) (1-9) % Eos % (Auto) (0-6) % Baso % (Auto) (0-2) % Absolute Neuts (auto) (1.5-7.7) 10^3/ul Absolute Lymphs (auto) (1.0-4.8) 10^3/ul Absolute Monos (auto) (0-0.8) 10^3/ul Absolute Eos (auto) (0-0.6) 10^3/ul Absolute Basos (auto) (0-0.2) 10^3/ul Absolute Nucleated RBC 10^3/ul Nucleated RBC % Sodium (133-145) mmol/L Potassium (3.5-5.0) mmol/L Chloride (101-111) mmol/L Carbon Dioxide (22-32) mmol/L Anion Gap (2-11) mmol/L BUN (6-24) mg/dL Creatinine (0.67-1.17) mg/dL Est GFR ( Amer) (>60) Est GFR (Non-Af Amer) (>60) BUN/Creatinine Ratio (8-20) Glucose (70-100) mg/dL Calcium (8.6-10.3) mg/dL Total Bilirubin (0.2-1.0) mg/dL AST (13-39) U/L ALT (7-52) U/L Alkaline Phosphatase (34-104) U/L Total Protein (6.4-8.9) g/dL Albumin (3.2-5.2) g/dL Globulin (2-4) g/dL Albumin/Globulin Ratio (1-3) TSH (0.34-5.60) mcIU/mL Urine Color Yellow Urine Appearance Clear Urine pH 5.0 (5-9) Ur Specific [place] 1.024 (1.010-1.030) Urine Protein Negative (Negative) Urine Ketones Negative (Negative) Urine Blood Negative (Negative) Urine Nitrate Negative (Negative) Urine Bilirubin Negative (Negative) Urine Urobilinogen Negative (Negative) Ur Leukocyte Esterase Negative (Negative) Urine Glucose Negative (Negative) Salicylates (<30) mg/dL Urine Opiates Screen (None Detect) Acetaminophen mcg/mL Ur Barbiturates Screen (None Detect) Ur Phencyclidine Scrn (None Detect) Ur Amphetamines Screen (None Detect) U Benzodiazepines Scrn (None Detect) Urine Cocaine Screen (None Detect) U Cannabinoids Screen (None Detect) Serum Alcohol (<10) mg/dL Result Diagrams: 06/04/17 23:07 06/04/17 23:09 Lab Statement: Any lab studies that have been ordered have been reviewed, and results considered in the medical decision making process. Course/Dx - Course Course Of Treatment: Patient is evaluated for MHU. Notes to suicidal thoughts. Depression, anxiety and recently lost job. Most recently on heroin, meth and suboxone (8mg ) prescribed by Dr. Lainez. Would like to go to rehab from here. He is cleared for MHU. Signed out to Dr. Vieyra at 2am pending MHU. - Differential Dx/Clinical Impression Differential Diagnosis/HQI/PQRI: Positive: Suicide Attempt, Suicidal Ideation, Suicidal Gesture Provider Diagnosis: Drug abuse, Suicidal ideation Discharge - Discharge Plan Condition: Stable Disposition: OTHER Discharge Disposition Comment: Signed out to Dr. Vieyra at 2am.
--- NOTE | 2017-06-05 06:14 | ED ---
Rajan Branch Abhishek, scribed for Eder Vieyra on 06/05/17 at 0605 . Progress - Progress Note Progress Note: This patient was signed out from JESSICA Atkinson, pending disposition, awaiting MHE. MHE evaluation completed. The patients condition is stable and will be discharged to home with Dx of substance abuse. Pt is recommended follow up with PCP within 3 days. - Consult/PCP Time Called: 12:30 Course/Dx - Course Course Of Treatment: This patient was signed out from JESSICA Atkinson, pending disposition, awaiting MHE. MHE evaluation completed. The patients condition is stable and will be discharged to home with Dx of substance abuse. Pt is recommended follow up with PCP within 3 days. - Diagnoses Provider Diagnoses: Substance abuse The documentation as recorded by the Rajan sparks Abhishek accurately reflects the service I personally performed and the decisions made by Azalia moseley Emmanuel.
--- NOTE | 2017-06-05 10:41 | PN ---
ED Flex Patient Progress Note Subjective: This is a 26 year-old M who is pending reevaluation by psychiatrist. He voices no complaints. He is currently sleeping in room. He ate breakfast this morning. Objective: Vitals: Most recent vital signs documented below. General NAD, Alert and oriented x3. Heart: rrr at 70 bpm Lungs: CTA or with rales, rhonchi, wheezing abd: soft nontender Laboratory: Current laboratory results documented below. Assessment: substance abuse Plan: Pending psychiatric to reevaluate for disposition Condition:Stable Vital Signs Temp Pulse Resp BP Pulse Ox 99.6 F 76 14 99/61 99 06/05/17 07:32 06/05/17 07:32 06/05/17 07:32 06/05/17 07:32 06/05/17 07:32 Lab Results - Entire Visit 06/04/17 06/04/17 06/04/17 23:18 23:18 23:09 WBC RBC Hgb Hct MCV MCH MCHC RDW Plt Count MPV Neut % (Auto) Lymph % (Auto) [place] % (Auto) Eos % (Auto) Baso % (Auto) Absolute Neuts (auto) Absolute Lymphs (auto) Absolute Monos (auto) Absolute Eos (auto) Absolute Basos (auto) Absolute Nucleated RBC Nucleated RBC % Sodium 136 Potassium 4.2 Chloride 106 Carbon Dioxide 26 Anion Gap 4 BUN 16 Creatinine 0.58 L Est GFR ( Amer) 214.6 Est GFR (Non-Af Amer) 166.8 BUN/Creatinine Ratio 27.6 H Glucose 88 Calcium 9.1 Total Bilirubin 0.20 AST 24 ALT 30 Alkaline Phosphatase 68 Total Protein 6.5 Albumin 3.8 Globulin 2.7 Albumin/Globulin Ratio 1.4 TSH 1.15 Urine Color Yellow Urine Appearance Clear Urine pH 5.0 Ur Specific [place] 1.024 Urine Protein Negative Urine Ketones Negative Urine Blood Negative Urine Nitrate Negative Urine Bilirubin Negative Urine Urobilinogen Negative Ur Leukocyte Esterase Negative Urine Glucose Negative Salicylates < 2.50 Urine Opiates Screen None detected Acetaminophen < 15 Ur Barbiturates Screen None detected Ur Phencyclidine Scrn None detected Ur Amphetamines Screen None detected U Benzodiazepines Scrn None detected Urine Cocaine Screen None detected U Cannabinoids Screen None detected Serum Alcohol < 10 06/04/17 23:07 WBC 5.8 RBC 4.26 Hgb 12.2 L Hct 36 L MCV 85 MCH 29 MCHC 33 RDW 14 Plt Count 290 MPV 7 L Neut % (Auto) 39.2 Lymph % (Auto) 39.6 [place] % (Auto) 8.5 Eos % (Auto) 11.6 H Baso % (Auto) 1.1 Absolute Neuts (auto) 2.3 Absolute Lymphs (auto) 2.3 Absolute Monos (auto) 0.5 Absolute Eos (auto) 0.7 H Absolute Basos (auto) 0.1 Absolute Nucleated RBC 0 Nucleated RBC % 0.1 Sodium Potassium Chloride Carbon Dioxide Anion Gap BUN Creatinine Est GFR ( Amer) Est GFR (Non-Af Amer) BUN/Creatinine Ratio Glucose Calcium Total Bilirubin AST ALT Alkaline Phosphatase Total Protein Albumin Globulin Albumin/Globulin Ratio TSH Urine Color Urine Appearance Urine pH Ur Specific [place] Urine Protein Urine Ketones Urine Blood Urine Nitrate Urine Bilirubin Urine Urobilinogen Ur Leukocyte Esterase Urine Glucose Salicylates Urine Opiates Screen Acetaminophen Ur Barbiturates Screen Ur Phencyclidine Scrn Ur Amphetamines Screen U Benzodiazepines Scrn Urine Cocaine Screen U Cannabinoids Screen Serum Alcohol
[2017-06-06] MEDS ORDERED: buPROPion SR TAB.SR* 100 MG PO ONE (13:19)
[2017-06-06] MEDS ORDERED: Acetaminophen TAB* 325 MG PO ONE (13:19)
--- NOTE | 2017-06-06 13:19 | ED ---
Rajan Branch Abhishek, scribed for Melina Linares MD on 06/06/17 at 1224 . Progress - Progress Note Progress Note: 12:45 06/06/17---26 yo M signed out from Ellie Atkinson pending disposition. Pt is in Flex 1. Asked by MARGARITA Herndon movement education specialist, to evaluate pt as family express concern about pt's safety. Pt's father and pt's brother's partner Stephen, have been calling concerned about pt. Pt does not want to speak to family at this time, but pt gives permission for family to have information about him. Pt has hx substance abuse, heroin in the past, methamphetamine 3 days ago, is on suboxone and wellbutrin. States he is still suicidal, wound [place]. Has past hx of [place] and heroin overdoses. Pt has no physical complaints of CP, SOB, abd pain, N, V or dizziness. States he has some chronic low back pain which he attributes to being without his suboxone. No injury to his back. Will speak to Dr. Marcano and recommend admission for this pt. Will give wellbutrin, and acetaminophen. Exam: Pt alert, calm, cooperative. HEENT: normal appearance. Neck supple Cor S1 S2 Lungs clear Back: no spinal tenderness or signs of trauma Extrem: no edema or trauma Neuro Alert, Ox3, no focal deficit. Moves all extremities. 2200 06/06/17: Care to Dr. Vieyra at change of shift. Dr. Vieyra aware of my recommendation that pt have inpatient care for suicidal ideation and that Dr. Marcano concurs with this recommendation for inpatient admission. Pt remains in Flex unit at the time of this change of shift. Chepe Linares MD. - Consult/PCP Time Called: 12:30 Course/Dx - Course Course Of Treatment: pt re-evaluated by ED MD 06/06/17 12:45pm. Pt remains suicidal. Discussed with Dr. Marcano 13:00. Plan is to have pt be inpatient whether that means transfer, or await bed at [facility]. Pt will be held for transfer or inpatient admission. - Diagnoses Provider Diagnoses: Substance abuse, Suicidal ideation - Provider Notifications Discussed Care Of Patient With: Bhargavi Marcano - pt will be inpatient. He will not be discharged. Instructed by Provider To: Admit As Inpatient - may need transfer if no [facility] bed The documentation as recorded by the Rajan sparks Abhishek accurately reflects the service I personally performed and the decisions made by me, Melina Linares MD.
--- NOTE | 2017-06-06 15:50 | PN ---
Progress Note - Progress Note Date of Service: 06/06/17 Note: Saw patient in Flex ED. In no acute distress. Asking when he can come to the BSU. Vaguely suicidal when asked. Keeps saying if discharged he might jump off a bridge which he did in the past. No where to go, no money, no support in place. Wants to give up drugs by going to an inpatient rehab. No evidence of mood, thoughts or perceptual disturbances. Family is concerned and [place] doctors [place] [facility] concerns. Patient reports that he does any street drugs that's available. 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 Cannot go to his mother's house because of her BF. Sleeps in his mother's van. Plan is to hold him in FLEX either to transfer to another hospital or admit on BSU when bed available.
--- NOTE | 2017-06-06 18:13 | PN ---
ED Flex Patient Progress Note Subjective: This is a 26 year-old M who is pending admission to [facility] or transfer to another psychiatric facility depending on availability secondary to SI and substance abuse. Pt offers no complaints at this time. He slept well last night. He ate his dinner. Objective: Vitals: Most recent vital signs documented below. General NAD, Alert and oriented x3. Heart: rrr at 70 bpm Lungs: CTA or with rales, rhonchi, wheezing abd: nontender, normoactive bowel sounds Laboratory: Current laboratory results documented below. Assessment: substance abuse Suicidal ideation Plan: Pending psychiatric to transfer or admit, will follow up daily bed available. Condition: stable Vital Signs Temp Pulse Resp BP Pulse Ox 98.5 F 81 16 117/70 99 06/06/17 15:55 06/06/17 15:55 06/06/17 15:55 06/06/17 15:55 06/06/17 08:04 Lab Results - Entire Visit 06/04/17 06/04/17 06/04/17 23:18 23:18 23:09 WBC RBC Hgb Hct MCV MCH MCHC RDW Plt Count MPV Neut % (Auto) Lymph % (Auto) [place] % (Auto) Eos % (Auto) Baso % (Auto) Absolute Neuts (auto) Absolute Lymphs (auto) Absolute Monos (auto) Absolute Eos (auto) Absolute Basos (auto) Absolute Nucleated RBC Nucleated RBC % Sodium 136 Potassium 4.2 Chloride 106 Carbon Dioxide 26 Anion Gap 4 BUN 16 Creatinine 0.58 L Est GFR ( Amer) 214.6 Est GFR (Non-Af Amer) 166.8 BUN/Creatinine Ratio 27.6 H Glucose 88 Calcium 9.1 Total Bilirubin 0.20 AST 24 ALT 30 Alkaline Phosphatase 68 Total Protein 6.5 Albumin 3.8 Globulin 2.7 Albumin/Globulin Ratio 1.4 TSH 1.15 Urine Color Yellow Urine Appearance Clear Urine pH 5.0 Ur Specific [employer] 1.024 Urine Protein Negative Urine Ketones Negative Urine Blood Negative Urine Nitrate Negative Urine Bilirubin Negative Urine Urobilinogen Negative Ur Leukocyte Esterase Negative Urine Glucose Negative Salicylates < 2.50 Urine Opiates Screen None detected Acetaminophen < 15 Ur Barbiturates Screen None detected Ur Phencyclidine Scrn None detected Ur Amphetamines Screen None detected U Benzodiazepines Scrn None detected Urine Cocaine Screen None detected U Cannabinoids Screen None detected Serum Alcohol < 10 06/04/17 23:07 WBC 5.8 RBC 4.26 Hgb 12.2 L Hct 36 L MCV 85 MCH 29 MCHC 33 RDW 14 Plt Count 290 MPV 7 L Neut % (Auto) 39.2 Lymph % (Auto) 39.6 [place] % (Auto) 8.5 Eos % (Auto) 11.6 H Baso % (Auto) 1.1 Absolute Neuts (auto) 2.3 Absolute Lymphs (auto) 2.3 Absolute Monos (auto) 0.5 Absolute Eos (auto) 0.7 H Absolute Basos (auto) 0.1 Absolute Nucleated RBC 0 Nucleated RBC % 0.1 Sodium Potassium Chloride Carbon Dioxide Anion Gap BUN Creatinine Est GFR ( Amer) Est GFR (Non-Af Amer) BUN/Creatinine Ratio Glucose Calcium Total Bilirubin AST ALT Alkaline Phosphatase Total Protein Albumin Globulin Albumin/Globulin Ratio TSH Urine Color Urine Appearance Urine pH Ur Specific [employer] Urine Protein Urine Ketones Urine Blood Urine Nitrate Urine Bilirubin Urine Urobilinogen Ur Leukocyte Esterase Urine Glucose Salicylates Urine Opiates Screen Acetaminophen Ur Barbiturates Screen Ur Phencyclidine Scrn Ur Amphetamines Screen U Benzodiazepines Scrn Urine Cocaine Screen U Cannabinoids Screen Serum Alcohol
--- NOTE | 2017-06-07 06:40 | ED ---
Joslyn Branch Thomas, scribed for Eder Vieyra on 06/07/17 at 0635 . Progress - Progress Note Progress Note: The patient is a sign out at shift change from Dr. Linares. The patient is pending mental health evaluation and awaiting disposition. The patient will be signed out to the next ED attending at shift change. Course/Dx - Diagnoses Provider Diagnoses: Depressed The documentation as recorded by the Joslyn sparks Thomas accurately reflects the service I personally performed and the decisions made by Azalia moseley Emmanuel.
--- NOTE | 2017-06-07 10:44 | PN ---
ED Flex Patient Progress Note Subjective: This is a 26 year-old M who is pending admission to [facility] having been abusing methamphetamines and LSD and c/o SI. Patient agrees to be referred to inpatient rehab and will fill out a JT packet prior to admission to the BSU today. 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 Vital Signs Temp Pulse Resp BP Pulse Ox 98.5 F 81 16 117/70 99 06/06/17 15:55 06/06/17 15:55 06/06/17 15:55 06/06/17 15:55 06/06/17 08:04 Lab Results - Entire Visit 06/04/17 06/04/17 06/04/17 23:18 23:18 23:09 WBC RBC Hgb Hct MCV MCH MCHC RDW Plt Count MPV Neut % (Auto) Lymph % (Auto) [place] % (Auto) Eos % (Auto) Baso % (Auto) Absolute Neuts (auto) Absolute Lymphs (auto) Absolute Monos (auto) Absolute Eos (auto) Absolute Basos (auto) Absolute Nucleated RBC Nucleated RBC % Sodium 136 Potassium 4.2 Chloride 106 Carbon Dioxide 26 Anion Gap 4 BUN 16 Creatinine 0.58 L Est GFR ( Amer) 214.6 Est GFR (Non-Af Amer) 166.8 BUN/Creatinine Ratio 27.6 H Glucose 88 Calcium 9.1 Total Bilirubin 0.20 AST 24 ALT 30 Alkaline Phosphatase 68 Total Protein 6.5 Albumin 3.8 Globulin 2.7 Albumin/Globulin Ratio 1.4 TSH 1.15 Urine Color Yellow Urine Appearance Clear Urine pH 5.0 Ur Specific [place] 1.024 Urine Protein Negative Urine Ketones Negative Urine Blood Negative Urine Nitrate Negative Urine Bilirubin Negative Urine Urobilinogen Negative Ur Leukocyte Esterase Negative Urine Glucose Negative Salicylates < 2.50 Urine Opiates Screen None detected Acetaminophen < 15 Ur Barbiturates Screen None detected Ur Phencyclidine Scrn None detected Ur Amphetamines Screen None detected U Benzodiazepines Scrn None detected Urine Cocaine Screen None detected U Cannabinoids Screen None detected Serum Alcohol < 10 06/04/17 23:07 WBC 5.8 RBC 4.26 Hgb 12.2 L Hct 36 L MCV 85 MCH 29 MCHC 33 RDW 14 Plt Count 290 MPV 7 L Neut % (Auto) 39.2 Lymph % (Auto) 39.6 [place] % (Auto) 8.5 Eos % (Auto) 11.6 H Baso % (Auto) 1.1 Absolute Neuts (auto) 2.3 Absolute Lymphs (auto) 2.3 Absolute Monos (auto) 0.5 Absolute Eos (auto) 0.7 H Absolute Basos (auto) 0.1 Absolute Nucleated RBC 0 Nucleated RBC % 0.1 Sodium Potassium Chloride Carbon Dioxide Anion Gap BUN Creatinine Est GFR ( Amer) Est GFR (Non-Af Amer) BUN/Creatinine Ratio Glucose Calcium Total Bilirubin AST ALT Alkaline Phosphatase Total Protein Albumin Globulin Albumin/Globulin Ratio TSH Urine Color Urine Appearance Urine pH Ur Specific [place] Urine Protein Urine Ketones Urine Blood Urine Nitrate Urine Bilirubin Urine Urobilinogen Ur Leukocyte Esterase Urine Glucose Salicylates Urine Opiates Screen Acetaminophen Ur Barbiturates Screen Ur Phencyclidine Scrn Ur Amphetamines Screen U Benzodiazepines Scrn Urine Cocaine Screen U Cannabinoids Screen Serum Alcohol
[2017-06-07] MEDS ORDERED: Al Hydrox/Mg Hydrox/Simet LIQ* 30 ML UDC PO PRN (12:21)
[2017-06-07] MEDS ORDERED: Mouth Piece, Nicotine* 1 EACH CARTRIDGE ONE (18:17)
[2017-06-07] MEDS: Nicotine GUM* 2 MG PO PRN (18:18)
[2017-06-07] MEDS: Nicotine Inhaler* 10 MG AMP INH PRN (18:18)
[2017-06-07] MEDS: Acetaminophen TAB* 325 MG PO PRN (20:25)
[2017-06-07] MEDS: buPROPion SR TAB.SR* 100 MG PO SCH (20:25)
[2017-06-07] MEDS ORDERED: traZODone TAB* 100 MG PO SCH (21:00)
[2017-06-08] MEDS: Acetaminophen TAB* 325 MG PO PRN ×2 (07:22→16:12)
[2017-06-08] MEDS: Nicotine GUM* 2 MG PO PRN ×4 (07:22→16:13)
[2017-06-08] MEDS: Vitamin THERAPEUTIC TAB PO SCH (09:49)
[2017-06-08] MEDS: buPROPion SR TAB.SR* 100 MG PO SCH ×2 (09:49→20:33)
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
[2017-06-08] MEDS: Methocarbamol TAB* 500 MG PO SCH ×2 (13:48→20:32)
[2017-06-08] MEDS: QUEtiapine TAB* 100 MG PO SCH (20:33)
[2017-06-09] MEDS: Methocarbamol TAB* 500 MG PO SCH ×2 (08:32→20:03)
[2017-06-09] MEDS: buPROPion SR TAB.SR* 100 MG PO SCH ×2 (08:32→20:03)
[2017-06-09] MEDS: Vitamin THERAPEUTIC TAB PO SCH (08:34)
[2017-06-09] MEDS: Acetaminophen TAB* 325 MG PO PRN (08:34)
--- NOTE | 2017-06-09 10:25 | PN ---
Subjective - Subjective Service Type: 23942 Hosp care 15 min low complexity Subjective: Patient continues to improve in regard to clarity of thought and in appropriateness when interacting with others. Patient's TP is linear and goal directed. Patient's affect is full, but eye contact continues to be intense. He is future oriented in his desire to discharge and transfer bed to bed to an inpatient SATP(substance abuse treatment program). Patient informed his Suboxone will be re-started and patient encouraged to take as Rx'd. Patient has been med compliant and denies med s/e' s. He fair sleep and appetite. He reports no SI/HI or AH/VH. He has had no behavioral issues on the unit. Objective - Appearance Appearance: Thin Framed Dysmorphic Features: No Hygiene: Normal Grooming: Fairly Well Kept - Behavior Psychomotor Activities: Normal Exhibits Abnormal Movement: No - Attitude and Relatedness Attitude and Relatedness: Cooperative Eye Contact: Fair - Speech Quality: Unpressured Latencies: Normal Quantity: Copious - Mood Patient's Decription of Mood: "Anxious" - Affect Observed Affect: Expansive Affect Consistent with: Dysphoria - Thought Process Patient's Thought Process: Coherent Thought Content: No Passive Wish, No Suicidal Planning, No Homicidal Ideation, No Paranoid Ideation - Sensorium Experiencing Hallucinations: No, Sensorium is Clear Type of Hallucinations: Visual: No, Auditory: No, Command: No - Level of Consciousness Level of Consciousness: Alert Orientation: Yes Intact, Yes Orientated to Time, Yes Orientated to Place, Yes Orientated to Person - Impulse Control Impulse Control: Intact - Insight and Judgement Insight and Judgement: Fair - Group Participation Particating in Group Activities: Yes - Medication Management Medication Management Adherence: Yes Assessment - Assessment Merits Inpatient Hospitalization: For Immediate Safety, For Stabilization Inpatient DSM-IV Dx: 1. Substance induced mood d/o. 2. Substance induced psychotic d/o. 3. LSD use d/o, severe. 4. Methamphetamine use d/o, severe. 5. MDMA use d/o, severe. 6. Cocaine use d/o, severe. 7. Cannabis use d/o, severe. 8. Unspecified PD, cluster B traits Plan - Plan Treatment Plan: Name: DAWSON LEIGH Birthdate: 1990 [id number] PLAN: ------ 1. Continue admission to [facility] for safety and symptom mx. 2. Continue Wellbutrin at 100mg po BID for depressive symptoms. 3. Per discussion with treatment team, will re-start Suboxone at 4-1 SL qam for opioid craving mx as patient is extremely high risk of relapse on IV Heroin. 4. Trazodone D/C'd as patient reports recent ineffectiveness. 5. Continue Seroquel 100mg po qhs for insomnia/ anxiety. 6. Continue 750mg po BID until discharge for muscle spasm associated with opioid w/d. 7. Inpt SW submitting multiple applications for inpt [facility], preferably those that allow continuation of Suboxone mx. 8. Continue compiling collateral information from family and outpt providers. 9. Patient to participate in milieu activities and groups. Continued Medication Management: Continue Outpt Medication Medications: Current Medications Acetaminophen (Tylenol Tab*) 650 mg PO Q4H PRN PRN Reason: for pain; or Temp >101 F Last Admin: 06/09/17 08:34 Dose: 650 mg Al Hydrox/Mg Hydrox/Simethicone (Maalox Plus*) 30 ml PO Q4H PRN PRN Reason: INDIGESTION Bupropion HCl (Wellbutrin Sr Tab*) 100 mg PO BID [facility] Last Admin: 06/09/17 08:32 Dose: 100 mg Methocarbamol (Robaxin Tab*) 750 mg PO BID [facility] Last Admin: 06/09/17 08:32 Dose: 750 mg Multivitamins (Theragran Tab*) 1 tab PO DAILY [facility] Last Admin: 06/09/17 08:34 Dose: 1 tab Nicotine (Nicotine Inhaler*) 10 mg INH Q2H PRN PRN Reason: CRAVING Last Admin: 06/07/17 18:18 Dose: 10 mg Nicotine Polacrilex (Nicotine Gum*) 2 mg PO Q2H PRN PRN Reason: CRAVING Last Admin: 06/08/17 16:13 Dose: 2 mg Quetiapine Fumarate (Seroquel Tab*) 100 mg PO BEDTIME [facility] Last Admin: 06/08/17 20:33 Dose: 100 mg - Discharge Plan Discharge Plan: Outpatient Follow Up Outpatient Program: [facility]
[2017-06-09] MEDS: Buprenorphine/Naloxone 8-2 MG SL TAB* 1 TAB PO SCH (11:09)
--- NOTE | 2017-06-09 16:32 | PN ---
MHU: Group Therapy Note - Service Type Service Type: [id number] Group Psychotherapy - Medication Education Group: Patient joined group late, remained in behavioral control. Patient noted to be circumstantial about substances that were no particularly on topic.
[2017-06-09] MEDS: Nicotine Inhaler* 10 MG AMP INH PRN (16:34)
[2017-06-09] MEDS: Nicotine GUM* 2 MG PO PRN ×2 (16:35→18:57)
[2017-06-09] MEDS: QUEtiapine TAB* 100 MG PO SCH (20:03)
[2017-06-10] MEDS: Methocarbamol TAB* 500 MG PO SCH ×2 (08:01→20:36)
[2017-06-10] MEDS: buPROPion SR TAB.SR* 100 MG PO SCH ×2 (08:03→20:35)
[2017-06-10] MEDS: Vitamin THERAPEUTIC TAB PO SCH (08:03)
[2017-06-10] MEDS: Buprenorphine/Naloxone 8-2 MG SL TAB* 1 TAB PO SCH (08:03)
[2017-06-10] MEDS: Nicotine GUM* 2 MG PO PRN ×3 (11:05→19:07)
--- NOTE | 2017-06-10 12:03 | PN ---
MHU: Group Therapy Note - Service Type Service Type: [id number] Group Psychotherapy - Cognitive Behavioral Group Therapy ( CBT):Patient was attentive and participatory in CBT programming this morning, and remained in good behavioral control. Patient expressed positive insights regarding relevant treatment interventions and goals.
--- NOTE | 2017-06-10 16:30 | PN ---
Subjective - Subjective Service Type: 04400 Hosp care 15 min low complexity Subjective: Patient noted to be visible in the milieu, social, pleasant, and participating in groups and milieu activities. Patient's TP is linear and goal directed. Patient's affect is full and eye contact is wnl. Patient reports noticing increased clarity of thought and increased energy/ motivation. He again discusses his desire to be sober. He expresses increased insight as to the destructive nature drugs have had on his life recently. Patient has been med compliant and denies med s/e's. He reports fair sleep and appetite. He reports no SI/HI or AH/VH. He has had no behavioral issues on the unit. Objective - Appearance Appearance: Thin Framed Dysmorphic Features: No Hygiene: Normal Grooming: Fairly Well Kept - Behavior Psychomotor Activities: Normal Exhibits Abnormal Movement: No - Attitude and Relatedness Attitude and Relatedness: Cooperative Eye Contact: Good - Speech Quality: Unpressured Latencies: Normal Quantity: Appropriate - Mood Patient's Decription of Mood: "Okay" - Affect Observed Affect: Fair Affect Consistent with: Euthymia - Thought Process Patient's Thought Process: Coherent Thought Content: No Passive Wish, No Suicidal Planning, No Homicidal Ideation, No Paranoid Ideation - Sensorium Experiencing Hallucinations: No, Sensorium is Clear Type of Hallucinations: Visual: No, Auditory: No, Command: No - Level of Consciousness Level of Consciousness: Alert Orientation: Yes Intact, Yes Orientated to Time, Yes Orientated to Place, Yes Orientated to Person - Impulse Control Impulse Control: Intact - Insight and Judgement Insight and Judgement: Fair - Group Participation Particating in Group Activities: Yes - Medication Management Medication Management Adherence: Yes Assessment - Assessment Merits Inpatient Hospitalization: For Immediate Safety, For Stabilization Inpatient DSM-IV Dx: 1. Substance induced mood d/o. 2. Substance induced psychotic d/o. 3. LSD use d/o, severe. 4. Methamphetamine use d/o, severe. 5. MDMA use d/o, severe. 6. Cocaine use d/o, severe. 7. Cannabis use d/o, severe. 8. Unspecified PD, cluster B traits Plan - Plan Treatment Plan: Name: DAWSON LEIGH Birthdate: 1990 [id number] PLAN: ------ 1. Continue admission to [facility] for safety and symptom mx. 2. Continue Wellbutrin at 100mg po BID for depressive symptoms. 3. Continue Suboxone at 4-1 SL qam for opioid craving mx as patient is extremely high risk of relapse on IV Heroin. 4. Trazodone D/C'd as patient reports recent ineffectiveness. 5. Continue Seroquel 100mg po qhs for insomnia/ anxiety. 6. Continue 750mg po BID until discharge for muscle spasm associated with opioid w/d. 7. Inpt SW submitting multiple applications for inpt [facility], preferably those that allow continuation of Suboxone mx. 8. Continue compiling collateral information from family and outpt providers. 9. Patient to participate in milieu activities and groups. Continued Medication Management: Start Medication Medications: Current Medications Acetaminophen (Tylenol Tab*) 650 mg PO Q4H PRN PRN Reason: for pain; or Temp >101 F Last Admin: 06/09/17 08:34 Dose: 650 mg Al Hydrox/Mg Hydrox/Simethicone (Maalox Plus*) 30 ml PO Q4H PRN PRN Reason: INDIGESTION Buprenorphine/Naloxone (Suboxone 8-2 Mg Sl Tab*) 0.5 tab.sl PO DAILY [facility] Last Admin: 06/10/17 08:03 Dose: 0.5 tab.sl Bupropion HCl (Wellbutrin Sr Tab*) 100 mg PO BID [facility] Last Admin: 06/10/17 08:03 Dose: 100 mg Methocarbamol (Robaxin Tab*) 750 mg PO BID [facility] Last Admin: 06/10/17 08:01 Dose: 750 mg Multivitamins (Theragran Tab*) 1 tab PO DAILY [facility] Last Admin: 06/10/17 08:03 Dose: 1 tab Nicotine (Nicotine Inhaler*) 10 mg INH Q2H PRN PRN Reason: CRAVING Last Admin: 06/09/17 16:34 Dose: 10 mg Nicotine Polacrilex (Nicotine Gum*) 2 mg PO Q2H PRN PRN Reason: CRAVING Last Admin: 06/10/17 16:05 Dose: 2 mg Quetiapine Fumarate (Seroquel Tab*) 100 mg PO BEDTIME [facility] Last Admin: 06/09/17 20:03 Dose: 100 mg - Discharge Plan Discharge Plan: Drug/Alcohol Rehab Outpatient Program: [facility]
[2017-06-10] MEDS: QUEtiapine TAB* 100 MG PO SCH (20:35)
[2017-06-11] MEDS: Vitamin THERAPEUTIC TAB PO SCH (07:48)
[2017-06-11] MEDS: buPROPion SR TAB.SR* 100 MG PO SCH ×2 (07:48→20:17)
[2017-06-11] MEDS: Methocarbamol TAB* 500 MG PO SCH (07:48)
[2017-06-11] MEDS: Buprenorphine/Naloxone 8-2 MG SL TAB* 1 TAB PO SCH (07:49)
[2017-06-11] MEDS: Nicotine GUM* 2 MG PO PRN ×5 (08:25→19:13)
--- NOTE | 2017-06-11 09:46 | PN ---
Subjective - Subjective Service Type: [id number] Hosp care 15 min low complexity Subjective: Patient noted to be visible in the milieu, social, pleasant, and participating in groups and milieu activities. Patient today shows no further signs of LSD/Meth w/d symptoms. Patient's TP is linear and goal directed. Patient's affect is full and eye contact is wnl. Patient has had good participation in all groups. He requests medical intervention regarding a tick attached to his skin. He was informed this would be ordered and tick removed. He is hopeful of bed [facility] bed [facility] Patient reports visit from family today which lifted his mood. Patient has been med compliant and denies med s/e's. He reports fair sleep and appetite. He reports no SI/HI or AH/VH. He has had no behavioral issues on the unit. Objective - Appearance Appearance: Thin Framed Dysmorphic Features: No Hygiene: Normal Grooming: Fairly Well Kept - Behavior Psychomotor Activities: Normal Exhibits Abnormal Movement: No - Attitude and Relatedness Attitude and Relatedness: Cooperative Eye Contact: Good - Speech Quality: Unpressured Latencies: Normal Quantity: Appropriate - Mood Patient's Decription of Mood: "Good" - Affect Observed Affect: Fair Affect Consistent with: Euthymia - Thought Process Patient's Thought Process: Coherent Thought Content: No Passive Wish, No Suicidal Planning, No Homicidal Ideation, No Paranoid Ideation - Sensorium Experiencing Hallucinations: No, Sensorium is Clear Type of Hallucinations: Visual: No, Auditory: No, Command: No - Level of Consciousness Level of Consciousness: Alert Orientation: Yes Intact, Yes Orientated to Time, Yes Orientated to Place, Yes Orientated to Person - Impulse Control Impulse Control: Intact - Insight and Judgement Insight and Judgement: Fair - Group Participation Particating in Group Activities: Yes - Medication Management Medication Management Adherence: Yes Assessment - Assessment Merits Inpatient Hospitalization: For Immediate Safety, For Stabilization Inpatient DSM-IV Dx: 1. Substance induced mood d/o. 2. Substance induced psychotic d/o. 3. LSD use d/o, severe. 4. Methamphetamine use d/o, severe. 5. MDMA use d/o, severe. 6. Cocaine use d/o, severe. 7. Cannabis use d/o, severe. 8. Unspecified PD, cluster B traits. Plan - Plan Treatment Plan: Name: DAWSON LEIGH Birthdate: 1990 [id number] PLAN: ------ 1. Continue admission to [facility] for safety and symptom mx. 2. Continue Wellbutrin at 100mg po BID for depressive symptoms. 3. Continue Suboxone at 4-1 SL qam for opioid craving mx as patient is extremely high risk of relapse on IV Heroin. 4. Trazodone D/C'd as patient reports recent ineffectiveness. 5. Continue Seroquel 100mg po qhs for insomnia/ anxiety. 6. Will D/C Methcarbamol as patient is back on Suboxone for mx of Opioid use d/ o. 7. Inpt SW submitting multiple applications for inpt [facility], preferably those that allow continuation of Suboxone mx. SW received a phone call from De[facility] at [facility] requesting to do phone screening with patient. 8. Continue compiling collateral information from family and outpt providers. 9. Patient to participate in milieu activities and groups. Continued Medication Management: Start Medication Medications: Current Medications Acetaminophen (Tylenol Tab*) 650 mg PO Q4H PRN PRN Reason: for pain; or Temp >101 F Last Admin: 06/09/17 08:34 Dose: 650 mg Al Hydrox/Mg Hydrox/Simethicone (Maalox Plus*) 30 ml PO Q4H PRN PRN Reason: INDIGESTION Buprenorphine/Naloxone (Suboxone 8-2 Mg Sl Tab*) 0.5 tab.sl PO DAILY [facility] Last Admin: 06/11/17 07:49 Dose: 0.5 tab.sl Bupropion HCl (Wellbutrin Sr Tab*) 100 mg PO BID [facility] Last Admin: 06/11/17 07:48 Dose: 100 mg Methocarbamol (Robaxin Tab*) 750 mg PO BID [facility] Last Admin: 06/11/17 07:48 Dose: 750 mg Multivitamins (Theragran Tab*) 1 tab PO DAILY [facility] Last Admin: 06/11/17 07:48 Dose: 1 tab Nicotine (Nicotine Inhaler*) 10 mg INH Q2H PRN PRN Reason: CRAVING Last Admin: 06/09/17 16:34 Dose: 10 mg Nicotine Polacrilex (Nicotine Gum*) 2 mg PO Q2H PRN PRN Reason: CRAVING Last Admin: 06/11/17 08:25 Dose: 2 mg Quetiapine Fumarate (Seroquel Tab*) 100 mg PO BEDTIME [facility] Last Admin: 06/10/17 20:35 Dose: 100 mg - Discharge Plan Discharge Plan: Drug/Alcohol Rehab Outpatient Program: [facility]
[2017-06-11] MEDS: Nicotine Inhaler* 10 MG AMP INH PRN ×2 (17:06→20:18)
[2017-06-11] MEDS: QUEtiapine TAB* 100 MG PO SCH (20:17)
[2017-06-12] MEDS: Buprenorphine/Naloxone 8-2 MG SL TAB* 1 TAB PO SCH (08:12)
[2017-06-12] MEDS: Vitamin THERAPEUTIC TAB PO SCH (08:13)
[2017-06-12] MEDS: buPROPion SR TAB.SR* 100 MG PO SCH ×2 (08:13→20:37)
[2017-06-12] MEDS: Nicotine Inhaler* 10 MG AMP INH PRN (10:05)
[2017-06-12] MEDS: Nicotine GUM* 2 MG PO PRN ×3 (10:05→20:39)
[2017-06-12] MEDS: QUEtiapine TAB* 100 MG PO SCH (20:37)
[2017-06-12] MEDS: Nicotine Patch Removal NOTE FOLLOW UP SCH (20:37)
[2017-06-13] MEDS: Vitamin THERAPEUTIC TAB PO SCH (08:05)
[2017-06-13] MEDS: buPROPion SR TAB.SR* 100 MG PO SCH ×2 (08:05→20:24)
[2017-06-13] MEDS: Buprenorphine/Naloxone 8-2 MG SL TAB* 1 TAB PO SCH (08:05)
[2017-06-13] MEDS: Nicotine PATCH 21 MG/24 HR* PATCH TRANSDERM SCH (08:35)
[2017-06-13] MEDS: Nicotine GUM* 2 MG PO PRN ×4 (08:36→22:11)
[2017-06-13] MEDS: Nicotine Patch Removal NOTE FOLLOW UP SCH (20:23)
[2017-06-13] MEDS: QUEtiapine TAB* 100 MG PO SCH (20:24)
[2017-06-14] MEDS: Buprenorphine/Naloxone 8-2 MG SL TAB* 1 TAB PO SCH (08:07)
[2017-06-14] MEDS: Vitamin THERAPEUTIC TAB PO SCH (08:08)
[2017-06-14] MEDS: buPROPion SR TAB.SR* 100 MG PO SCH (08:08)
[2017-06-14] MEDS: Nicotine PATCH 21 MG/24 HR* PATCH TRANSDERM SCH (08:08)
[2017-06-14] MEDS: Nicotine GUM* 2 MG PO PRN ×5 (08:22→20:01)
[2017-06-14] MEDS: Nicotine Inhaler* 10 MG AMP INH PRN ×2 (08:56→17:11)
--- NOTE | 2017-06-14 13:20 | PN ---
Subjective - Subjective Service Type: 54770 Hosp care 15 min low complexity Subjective: Patient noted to be visible in the milieu, social, pleasant, and participating in groups and milieu activities. Patient reports his mood as "good". Patient's TP is linear and goal directed. Patient's affect is full and eye contact is wnl. Patient noted by staff to have been in behavioral control and having good participation in all groups. He was informed team is waiting to hear from inpatient SATP. Patient has been med compliant and denies med s/e's. He reports fair sleep and appetite. He reports no SI/HI or AH/ VH. Objective - Appearance Appearance: Well Developed/Nourished Dysmorphic Features: No Hygiene: Normal Grooming: Well Kept - Behavior Psychomotor Activities: Normal Exhibits Abnormal Movement: No - Attitude and Relatedness Attitude and Relatedness: Cooperative Eye Contact: Fair - Speech Quality: Unpressured Latencies: Normal Quantity: Appropriate - Mood Patient's Decription of Mood: "Fine" - Affect Observed Affect: Fair Affect Consistent with: Euthymia - Thought Process Patient's Thought Process: Coherent Thought Content: No Passive Wish, No Suicidal Planning, No Homicidal Ideation, No Paranoid Ideation - Sensorium Experiencing Hallucinations: No, Sensorium is Clear Type of Hallucinations: Visual: No, Auditory: No, Command: No - Level of Consciousness Level of Consciousness: Alert Orientation: Yes Intact, Yes Orientated to Time, Yes Orientated to Place, Yes Orientated to Person - Impulse Control Impulse Control: Intact - Insight and Judgement Insight and Judgement: Fair - Group Participation Particating in Group Activities: Yes - Medication Management Medication Management Adherence: Yes Assessment - Assessment Merits Inpatient Hospitalization: For Immediate Safety, For Stabilization Inpatient DSM-IV Dx: 1. Substance induced mood d/o. 2. Substance induced psychotic d/o. 3. LSD use d/o, severe. 4. Methamphetamine use d/o, severe. 5. MDMA use d/o, severe. 6. Cocaine use d/o, severe. 7. Cannabis use d/o, severe. 8. Unspecified PD, cluster B traits. Plan - Plan Treatment Plan: Name: DAWSON LEIGH Birthdate: 1990 [id number] PLAN: ------ 1. Continue admission to [facility] for safety and symptom mx. 2. Continue Wellbutrin at 150mg po qam for depressive symptoms, as patient reports he would like have compliance issues with the mid day dose. 3. Continue Suboxone at 4-1 SL qam for opioid craving mx as patient is extremely high risk of relapse on IV Heroin. 4. Trazodone D/C'd as patient reports recent ineffectiveness. 5. Continue Seroquel 100mg po qhs for insomnia/ anxiety. 6. Methcarbamol D/C'd as patient is back on Suboxone for mx of Opioid use d/o. 7. Inpt SW submitting multiple applications for inpt SATP, preferably those that allow continuation of Suboxone mx. SW received a phone call from Deysi at [facility] requesting to do phone screening with patient. 8. Continue compiling collateral information from family and outpt providers. 9. Patient to participate in milieu activities and groups. Medications: Current Medications Acetaminophen (Tylenol Tab*) 650 mg PO Q4H PRN PRN Reason: for pain; or Temp >101 F Last Admin: 06/09/17 08:34 Dose: 650 mg Al Hydrox/Mg Hydrox/Simethicone (Maalox Plus*) 30 ml PO Q4H PRN PRN Reason: INDIGESTION Buprenorphine/Naloxone (Suboxone 8-2 Mg Sl Tab*) 0.5 tab.sl PO DAILY [facility] Last Admin: 06/14/17 08:07 Dose: 0.5 tab.sl Bupropion HCl (Wellbutrin Sr Tab*) 100 mg PO BID [facility] Last Admin: 06/14/17 08:08 Dose: 100 mg Multivitamins (Theragran Tab*) 1 tab PO DAILY [facility] Last Admin: 06/14/17 08:08 Dose: 1 tab Nicotine (Nicotine Inhaler*) 10 mg INH Q2H PRN PRN Reason: CRAVING Last Admin: 06/14/17 08:56 Dose: 10 mg Nicotine (Nicotine Patch 21 Mg/24 Hr*) 1 patch TRANSDERM DAILY@0800 [facility] Last Admin: 06/14/17 08:08 Dose: 1 patch Nicotine Polacrilex (Nicotine Gum*) 2 mg PO Q2H PRN PRN Reason: CRAVING Last Admin: 06/14/17 13:07 Dose: 2 mg Pharmacy Profile Note (Nicotine Patch Removal Note*) 1 note FOLLOW UP 2100 [facility] Last Admin: 06/13/17 20:23 Dose: 1 note Quetiapine Fumarate (Seroquel Tab*) 100 mg PO BEDTIME [facility] Last Admin: 06/13/17 20:24 Dose: 100 mg - Discharge Plan Discharge Plan: Drug/Alcohol Rehab Outpatient Program: [facility] Flores [facility]
[2017-06-14] MEDS: QUEtiapine TAB* 100 MG PO SCH (20:01)
[2017-06-14] MEDS: Nicotine Patch Removal NOTE FOLLOW UP SCH (20:04)
[2017-06-15] MEDS: Nicotine PATCH 21 MG/24 HR* PATCH TRANSDERM SCH (08:24)
[2017-06-15] MEDS: buPROPion SR TAB.SR* 150 MG PO SCH (08:25)
[2017-06-15] MEDS: Vitamin THERAPEUTIC TAB PO SCH (08:25)
[2017-06-15] MEDS: Buprenorphine/Naloxone 8-2 MG SL TAB* 1 TAB PO SCH (08:26)
[2017-06-15] MEDS: Nicotine GUM* 2 MG PO PRN ×4 (10:54→20:45)
[2017-06-15] MEDS: Nicotine Inhaler* 10 MG AMP INH PRN ×2 (10:54→17:35)
--- NOTE | 2017-06-15 14:29 | PN ---
Subjective - Subjective Service Type: 18059 Hosp care 15 min low complexity Subjective: Patient noted to be visible in the milieu, social, pleasant, and participating in groups and milieu activities. Patient reports his mood as "good" again today. Patient's TP is linear and goal directed. Patient's affect is full and eye contact is wnl. Patient participating in all groups. He continues to interview for inpt SATPs. Patient has been med compliant and denies med s/e's. He reports fair sleep and appetite. He reports no SI/HI or AH/VH. Objective - Appearance Appearance: Well Developed/Nourished Dysmorphic Features: No Hygiene: Normal Grooming: Well Kept - Behavior Psychomotor Activities: Normal Exhibits Abnormal Movement: No - Attitude and Relatedness Attitude and Relatedness: Cooperative Eye Contact: Good - Speech Quality: Unpressured Latencies: Normal Quantity: Appropriate - Mood Patient's Decription of Mood: "Good" - Affect Observed Affect: Good Affect Consistent with: Euthymia - Thought Process Patient's Thought Process: Coherent Thought Content: No Passive Wish, No Suicidal Planning, No Homicidal Ideation, No Paranoid Ideation - Sensorium Experiencing Hallucinations: No, Sensorium is Clear Type of Hallucinations: Visual: No, Auditory: No, Command: No - Level of Consciousness Level of Consciousness: Alert Orientation: Yes Intact, Yes Orientated to Time, Yes Orientated to Place, Yes Orientated to Person - Impulse Control Impulse Control: Intact - Insight and Judgement Insight and Judgement: Fair - Group Participation Particating in Group Activities: Yes - Medication Management Medication Management Adherence: Yes Assessment - Assessment Merits Inpatient Hospitalization: For Immediate Safety, For Stabilization Inpatient DSM-IV Dx: 1. Substance induced mood d/o. 2. Substance induced psychotic d/o. 3. LSD use d/o, severe. 4. Methamphetamine use d/o, severe. 5. MDMA use d/o, severe. 6. Cocaine use d/o, severe. 7. Cannabis use d/o, severe. 8. Unspecified PD, cluster B traits. Plan - Plan Treatment Plan: Name: DAWSON LEIGH Birthdate: 1990 [id number] PLAN: ------ 1. Continue admission to [facility] for safety and symptom mx. 2. Continue Wellbutrin at 150mg po qam for depressive symptoms, as patient reports he would like have compliance issues with the mid day dose. 3. Continue Suboxone at 4-1 SL qam for opioid craving mx as patient is extremely high risk of relapse on IV Heroin. 4. Trazodone D/C'd as patient reports recent ineffectiveness. 5. Continue Seroquel 100mg po qhs for insomnia/ anxiety. 6. Methcarbamol D/C'd as patient is back on Suboxone for mx of Opioid use d/o. 7. Patient continues to interview with SATPs. 8. Continue compiling collateral information from family and outpt providers. 9. Patient to participate in milieu activities and groups. Continued Medication Management: Continue Outpt Medication Medications: Current Medications Acetaminophen (Tylenol Tab*) 650 mg PO Q4H PRN PRN Reason: for pain; or Temp >101 F Last Admin: 06/09/17 08:34 Dose: 650 mg Al Hydrox/Mg Hydrox/Simethicone (Maalox Plus*) 30 ml PO Q4H PRN PRN Reason: INDIGESTION Buprenorphine/Naloxone (Suboxone 8-2 Mg Sl Tab*) 0.5 tab.sl PO DAILY [facility] Last Admin: 06/15/17 08:26 Dose: 0.5 tab.sl Bupropion HCl (Wellbutrin Sr Tab*) 150 mg PO DAILY [facility] Last Admin: 06/15/17 08:25 Dose: 150 mg Multivitamins (Theragran Tab*) 1 tab PO DAILY [facility] Last Admin: 06/15/17 08:25 Dose: 1 tab Nicotine (Nicotine Inhaler*) 10 mg INH Q2H PRN PRN Reason: CRAVING Last Admin: 06/15/17 10:54 Dose: 10 mg Nicotine (Nicotine Patch 21 Mg/24 Hr*) 1 patch TRANSDERM DAILY@0800 [facility] Last Admin: 06/15/17 08:24 Dose: 1 patch Nicotine Polacrilex (Nicotine Gum*) 2 mg PO Q2H PRN PRN Reason: CRAVING Last Admin: 06/15/17 13:31 Dose: 2 mg Pharmacy Profile Note (Nicotine Patch Removal Note*) 1 note FOLLOW UP 2100 [facility] Last Admin: 06/14/17 20:04 Dose: 1 note Quetiapine Fumarate (Seroquel Tab*) 100 mg PO BEDTIME [facility] Last Admin: 06/14/17 20:01 Dose: 100 mg - Discharge Plan Discharge Plan: Outpatient Follow Up Outpatient Program: [facility]
[2017-06-15] MEDS: QUEtiapine TAB* 100 MG PO SCH (20:44)
[2017-06-15] MEDS: Nicotine Patch Removal NOTE FOLLOW UP SCH (20:46)
[2017-06-16] MEDS: buPROPion SR TAB.SR* 150 MG PO SCH (07:36)
[2017-06-16] MEDS: Vitamin THERAPEUTIC TAB PO SCH (07:36)
[2017-06-16] MEDS: Nicotine PATCH 21 MG/24 HR* PATCH TRANSDERM SCH (07:36)
[2017-06-16] MEDS: Buprenorphine/Naloxone 8-2 MG SL TAB* 1 TAB PO SCH (07:37)
[2017-06-16] MEDS: Nicotine GUM* 2 MG PO PRN ×5 (09:07→21:08)
[2017-06-16] MEDS: Nicotine Inhaler* 10 MG AMP INH PRN ×4 (09:07→21:08)
--- NOTE | 2017-06-16 14:09 | PN ---
Subjective - Subjective Service Type: 13934 Hosp care 15 min low complexity Subjective: Patient noted to be visible in the milieu, social, pleasant, and participating in groups and milieu activities. Patient reports his mood as "good" again today. He reports being in good spirits, motivated, and less anxious about starting the inpt. rehab program. Patient's TP is linear and goal directed. Patient's affect is full and eye contact is wnl. Patient participating in all groups. Patient has been med compliant and denies med s/e' s. He reports fair sleep and appetite. He reports no SI/HI or AH/VH. Patient will discharge in the am, bed to bed to [facility]. Objective - Appearance Appearance: Well Developed/Nourished Dysmorphic Features: No Hygiene: Normal Grooming: Well Kept - Behavior Psychomotor Activities: Normal Exhibits Abnormal Movement: No - Attitude and Relatedness Attitude and Relatedness: Cooperative Eye Contact: Good - Speech Quality: Unpressured Latencies: Normal Quantity: Appropriate - Mood Patient's Decription of Mood: "Good" - Affect Observed Affect: Good Affect Consistent with: Euthymia - Thought Process Patient's Thought Process: Coherent Thought Content: No Passive Wish, No Suicidal Planning, No Homicidal Ideation, No Paranoid Ideation - Sensorium Experiencing Hallucinations: No, Sensorium is Clear Type of Hallucinations: Visual: No, Auditory: No, Command: No - Level of Consciousness Level of Consciousness: Alert Orientation: Yes Intact, Yes Orientated to Time, Yes Orientated to Place, Yes Orientated to Person - Impulse Control Impulse Control: Intact - Insight and Judgement Insight and Judgement: Fair - Group Participation Particating in Group Activities: Yes - Medication Management Medication Management Adherence: Yes Assessment - Assessment Merits Inpatient Hospitalization: For Immediate Safety, For Stabilization Inpatient DSM-IV Dx: 1. Substance induced mood d/o. 2. Substance induced psychotic d/o. 3. LSD use d/o, severe. 4. Methamphetamine use d/o, severe. 5. MDMA use d/o, severe. 6. Cocaine use d/o, severe. 7. Cannabis use d/o, severe. 8. Unspecified PD, cluster B traits. Plan - Plan Treatment Plan: Name: DAWSON LEIGH Birthdate: 1990 [id number] PLAN: ------ 1. Continue admission to [facility] for safety and symptom mx. 2. Continue Wellbutrin at 150mg po qam for depressive symptoms, as patient reports he would like have compliance issues with the mid day dose. 3. Continue Suboxone at 4-1 SL qam for opioid craving mx as patient is extremely high risk of relapse on IV Heroin. 4. Trazodone D/C'd as patient reports recent ineffectiveness. 5. Continue Seroquel 100mg po qhs for insomnia/ anxiety. 6. Methcarbamol D/C'd as patient is back on Suboxone for mx of Opioid use d/o. 7. Patient to discharge and be transported bed to bed at ~8am to [facility]. 8. Continue compiling collateral information from family and outpt providers. 9. Patient to participate in milieu activities and groups. Continued Medication Management: Continue Outpt Medication Medications: Current Medications Acetaminophen (Tylenol Tab*) 650 mg PO Q4H PRN PRN Reason: for pain; or Temp >101 F Last Admin: 06/09/17 08:34 Dose: 650 mg Al Hydrox/Mg Hydrox/Simethicone (Maalox Plus*) 30 ml PO Q4H PRN PRN Reason: INDIGESTION Buprenorphine/Naloxone (Suboxone 8-2 Mg Sl Tab*) 0.5 tab.sl PO DAILY [facility] Last Admin: 06/16/17 07:37 Dose: 0.5 tab.sl Bupropion HCl (Wellbutrin Sr Tab*) 150 mg PO DAILY [facility] Last Admin: 06/16/17 07:36 Dose: 150 mg Multivitamins (Theragran Tab*) 1 tab PO DAILY [facility] Last Admin: 06/16/17 07:36 Dose: 1 tab Nicotine (Nicotine Inhaler*) 10 mg INH Q2H PRN PRN Reason: CRAVING Last Admin: 06/16/17 09:07 Dose: 10 mg Nicotine (Nicotine Patch 21 Mg/24 Hr*) 1 patch TRANSDERM DAILY@0800 [facility] Last Admin: 06/16/17 07:36 Dose: 1 patch Nicotine Polacrilex (Nicotine Gum*) 2 mg PO Q2H PRN PRN Reason: CRAVING Last Admin: 06/16/17 12:59 Dose: 2 mg Pharmacy Profile Note (Nicotine Patch Removal Note*) 1 note FOLLOW UP 2100 [facility] Last Admin: 06/15/17 20:46 Dose: 1 note Quetiapine Fumarate (Seroquel Tab*) 100 mg PO BEDTIME [facility] Last Admin: 06/15/17 20:44 Dose: 100 mg - Discharge Plan Discharge Plan: Drug/Alcohol Rehab Outpatient Program: [facility]inder Flores [facility]
[2017-06-16] MEDS: QUEtiapine TAB* 100 MG PO SCH (20:16)
[2017-06-16] MEDS: Nicotine Patch Removal NOTE FOLLOW UP SCH (20:16)
[2017-06-17 08:07] VITALS: BP 115/68
[2017-06-17] MEDS: buPROPion SR TAB.SR* 150 MG PO SCH (08:45)
[2017-06-17] MEDS: Vitamin THERAPEUTIC TAB PO SCH (08:45)
[2017-06-17] MEDS: Nicotine PATCH 21 MG/24 HR* PATCH TRANSDERM SCH (08:45)
[2017-06-17] MEDS: Buprenorphine/Naloxone 8-2 MG SL TAB* 1 TAB PO SCH (08:46)
--- NOTE | 2017-06-17 12:17 | DS ---
Subjective - Subjective Service Types: 26231 Hosp DC Day Mgmt simple under 30 min Subjective: Patient noted to be visible most of the day in the milieu, pleasant, social with peers and attending groups. Patient reports is mood as good and is ready to begin his inpatient SATP. Patient denies med s/e's. Patient reports feeling ready for discharge. Patient is A&Ox4, linear and GD in TP, and future oriented in TC. Patient again denies SI/HI and AH/VH. Patient is psychiatrically stable. Discharge plan has been discussed and patient is amenable and acknowledges understanding. Patient instructed to discuss with rehab program staff, call the crisis hotline, 911, or self present to a local ED if SI recurs. Patient was amenable and acknowledged understanding of family and community supports. Patient discharged and transported to [facility] inpatient SATP. Objective - Appearance Appearance: Well Developed/Nourished Dysmorphic Features: No Hygiene: Normal Grooming: Well Kept - Behavior Psychomotor Activities: Normal Exhibits Abnormal Movement: No - Attitude and Relatedness Attitude and Relatedness: Cooperative Eye Contact: Good - Speech Quality: Unpressured Latencies: Normal Quantity: Appropriate - Mood Patient's Decription of Mood: "Good" - Affect Observed Affect: Good Affect Consistent with: Euthymia - Thought Process Patient's Thought Process: Coherent Thought Content: No Passive Wish, No Suicidal Planning, No Homicidal Ideation, No Paranoid Ideation - Sensorium Experiencing Hallucinations: Yes Type of Hallucinations: Visual: No, Auditory: No, Command: No - Level of Consciousness Level of Consciousness: Alert Orientation: Yes Intact, Yes Orientated to Time, Yes Orientated to Place, Yes Orientated to Person - Impulse Control Impulse Control: Intact - Insight and Judgement Insight and Judgement: Fair - Group Participation Particating in Group Activities: Yes - Medication Management Medication Management Adherence: Yes Treatment Course & Assessment Clinical Course & Impression: HOSPITAL COURSE: Patient is a 26yo male with PPHx significant for polysubstance use d/o, Substance induced psychosis and Unspecified mood d/o presents to [facility], BIBA called by his brother. He reports worsening depressive symptoms associated with intense SI w/ plan to jump into a gorge. Patient has hx of 1 suicide attempt and it was by means of jumping into a gorge. Patient also reporting AHs of male and female voices commanding him to travel places around [place]. Patient has multiple prior psychiatric hospitalizations for depression and polysubstance use d/o. Patient hospitalized last here at [facility] in 05/2017. Patient reports noting a significant drop in his mood after the breakup with his GF approx.5 months ago. 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 Patient has been sleeping in a van outside his mom' s home. Patient reports increased illicit substance use over the last 5months, especially LSD, Cocaine, Meth and Cannabis. Patient reports recent daily abuse of MDMA and Meth. He reports noticing AHs of male and female voices commanding him to travel places around [place] over the last 2 weeks since increasing his daily amount of Meth he uses. Patient also endorses his abuse of his Rx'd Suboxone. He reports current opioid w/d symptoms of muscle spasm and low appetite. On the unit, patient is cooperative, but tangential in TP. He displays LOAs at times and is expanded in mood. His eye contact is intense. He reports still feeling the effects of the LSD. He reports ongoing SI, but reports no planning. He reports feeling safe on the unit. He reports last being on Wellbutrin before stopping the med. He reported no s/es or issues on Wellbutrin. Patient reports recent poor sleep and requests a sleep aid. He reports Trazodone Rx'd at his last admission has been ineffective. Patient denies current AH/VH and reports no other signs of psychosis, nor were any elicited on interview. Patient encouraged to attend groups. On admission, Wellbutrin was re-startedat 100mg po BID for depressive symptoms. Initially d/c' d but later re-started Suboxone at 4-1 daily dose due to re-evaluation and assessment that patient is high riskfor relapse on IV Heroin. due to abuse. D/C' d Trazodone as patient reports recent ineffectiveness. Seroquel 100mg po qhs for insomnia/ anxiety was started for insomnia mood augmentation. Methocarbamol 750mg po BID until discharge for muscle spasm associated with opioid w/d but was d/c'd when Suboxone re-started. Patient showed daily clearing of his w/d symptoms and improved cognition and clarity of thought within the first 3 days of admission. Wellbutrin was increased from 100mg po BID to 150mg po qam as patient felt the afternoon dose of Wellbutrin may be forgotten often and he was concerned with med compliance. Patient was noted to have daily increase mood, participation in groups, and social interaction with peers. On day of discharge, patient noted to be visible most of the day in the milieu, pleasant, social with peers and attending groups. Patient reports is mood as good and is ready to begin his inpatient SATP. Patient denies med s/e's. Patient reports feeling ready for discharge. Patient is A&Ox4, linear and GD in TP, and future oriented in TC. Patient again denies SI/HI and AH/VH. Patient is psychiatrically stable. Discharge plan has been discussed and patient is amenable and acknowledges understanding. Patient instructed to discuss with rehab program staff, call the crisis hotline, 911, or self present to a local ED if SI recurs. Patient was amenable and acknowledged understanding of family and community supports. Patient discharged and transported to [facility] inpatient SATP. PERTINENT LABS: 05/21/2017 Cholesterol -- 113 Triglycerides -- 94 LDL -- 60 HDL -- 33.8 HgbA1c -- 5.4 Laboratory Tests 06/04/17 06/04/17 06/04/17 23:07 23:09 23:18 WBC 5.8 RBC 4.26 Hgb 12.2 L Hct 36 L MCV 85 MCH 29 MCHC 33 RDW 14 Plt Count 290 MPV 7 L Neut % (Auto) 39.2 Lymph % (Auto) 39.6 [place] % (Auto) 8.5 Eos % (Auto) 11.6 H Baso % (Auto) 1.1 Absolute Neuts (auto) 2.3 Absolute Lymphs (auto) 2.3 Absolute Monos (auto) 0.5 Absolute Eos (auto) 0.7 H Absolute Basos (auto) 0.1 Absolute Nucleated RBC 0 Nucleated RBC % 0.1 Sodium 136 Potassium 4.2 Chloride 106 Carbon Dioxide 26 Anion Gap 4 BUN 16 Creatinine 0.58 L Est GFR ( Amer) 214.6 Est GFR (Non-Af Amer) 166.8 BUN/Creatinine Ratio 27.6 H Glucose 88 Calcium 9.1 Total Bilirubin 0.20 AST 24 ALT 30 Alkaline Phosphatase 68 Total Protein 6.5 Albumin 3.8 Globulin 2.7 Albumin/Globulin Ratio 1.4 TSH 1.15 Urine Color Urine Appearance Urine pH Ur Specific [place] Urine Protein Urine Ketones Urine Blood Urine Nitrate Urine Bilirubin Urine Urobilinogen Ur Leukocyte Esterase Urine Glucose Salicylates < 2.50 Urine Opiates Screen None detected Acetaminophen < 15 Ur Barbiturates Screen None detected Ur Phencyclidine Scrn None detected Ur Amphetamines Screen None detected U Benzodiazepines Scrn None detected Urine Cocaine Screen None detected U Cannabinoids Screen None detected Serum Alcohol < 10 06/04/17 23:18 WBC RBC Hgb Hct MCV MCH MCHC RDW Plt Count MPV Neut % (Auto) Lymph % (Auto) [place] % (Auto) Eos % (Auto) Baso % (Auto) Absolute Neuts (auto) Absolute Lymphs (auto) Absolute Monos (auto) Absolute Eos (auto) Absolute Basos (auto) Absolute Nucleated RBC Nucleated RBC % Sodium Potassium Chloride Carbon Dioxide Anion Gap BUN Creatinine Est GFR ( Amer) Est GFR (Non-Af Amer) BUN/Creatinine Ratio Glucose Calcium Total Bilirubin AST ALT Alkaline Phosphatase Total Protein Albumin Globulin Albumin/Globulin Ratio TSH Urine Color Yellow Urine Appearance Clear Urine pH 5.0 Ur Specific [place] 1.024 Urine Protein Negative Urine Ketones Negative Urine Blood Negative Urine Nitrate Negative Urine Bilirubin Negative Urine Urobilinogen Negative Ur Leukocyte Esterase Negative Urine Glucose Negative Salicylates Urine Opiates Screen Acetaminophen Ur Barbiturates Screen Ur Phencyclidine Scrn Ur Amphetamines Screen U Benzodiazepines Scrn Urine Cocaine Screen U Cannabinoids Screen Serum Alcohol Consultants: none Discharge Meds: Home Medications Medication Instructions Recorded Confirmed Type Buprenorphine/Naloxone SL TAB* 0.5 tab.sl PO DAILY tab.sl MDD 0.5 06/16/17 Rx [Suboxone 8-2 mg SL TAB*] Nicotine GUM* 2 mg PO Q2H PRN gum 06/16/17 Rx Nicotine Inhaler* 10 mg INH Q2H PRN amp 06/16/17 Rx Nicotine PATCH 21 MG/24 HR* 1 patch TRANSDERM DAILY@0800 patch 06/16/17 Rx QUEtiapine TAB* [Seroquel TAB*] 100 mg PO BEDTIME tab 06/16/17 Rx Vitamin THERAPEUTIC TAB* 1 tab PO DAILY tab 06/16/17 Rx [Theragran TAB*] buPROPion SR TAB* [Wellbutrin SR 150 mg PO DAILY tab.sr 06/16/17 Rx TAB*] Follow-Up: Patient discharged and transported to the [facility](substance abuse treatment program). Clear for Discharge: Adequate Clinical Respons, Acceptable Safety Profile Inpatient DSM-IV Dx: 1. Substance induced mood d/o. 2. Substance induced psychotic d/o. 3. LSD use d/o, severe. 4. Methamphetamine use d/o, severe. 5. MDMA use d/o, severe. 6. Cocaine use d/o, severe. 7. Cannabis use d/o, severe. 8. Unspecified PD, cluster B traits. Discharge Planning - Discharge Planning Discharge Plan: Drug/Alcohol Rehab Outpatient Program: [facility] Recommendations for Continuing Care: Medication Management, Psychotherapy, Substance Abuse Counseling Medications: Home Medications Medication Instructions Recorded Confirmed Type Buprenorphine/Naloxone SL TAB* 0.5 tab.sl PO DAILY tab.sl MDD 0.5 06/16/17 Rx [Suboxone 8-2 mg SL TAB*] Nicotine GUM* 2 mg PO Q2H PRN gum 06/16/17 Rx Nicotine Inhaler* 10 mg INH Q2H PRN amp 06/16/17 Rx Nicotine PATCH 21 MG/24 HR* 1 patch TRANSDERM DAILY@0800 patch 06/16/17 Rx QUEtiapine TAB* [Seroquel TAB*] 100 mg PO BEDTIME tab 06/16/17 Rx Vitamin THERAPEUTIC TAB* 1 tab PO DAILY tab 06/16/17 Rx [Theragran TAB*] buPROPion SR TAB* [Wellbutrin SR 150 mg PO DAILY tab.sr 06/16/17 Rx TAB*] Discharge Planning: Prescriptions provided for discharge [x] Yes [] No Follow up care details as per social work arrangements. Patient response to discharge plan: [] eager for discharge [x] agreeable with discharge plan [] ambivalent about discharge [] disagrees with discharge today
== END 2017-06-17 09:30 | DRG 773 ==
LOC: ED 22:39 → BSU 06-07 12:21
PROVIDERS: ADMIT Psychiatry & Neurology Psychiatry; ATTEND Psychiatry & Neurology Psychiatry
DX: F16.14 Hallucinogen abuse with hallucinogen-induced mood disorder (principal); F11.10 Opioid abuse, uncomplicated; F16.151 Hallucinogen abuse with hallucinogen-induced psychotic disorder with hallucinations; R45.851 Suicidal ideations; F14.10 Cocaine abuse, uncomplicated; F12.10 Cannabis abuse, uncomplicated; F15.10 Other stimulant abuse, uncomplicated; F60.9 Personality disorder, unspecified; Z62.810 Personal history of physical and sexual abuse in childhood; B19.20 Unspecified viral hepatitis C without hepatic coma; Z81.8 Family history of other mental and behavioral disorders; Z79.899 Other long term (current) drug therapy; T14.8XXA Other injury of unspecified body region, initial encounter; W57.XXXA Bitten or stung by nonvenomous insect and other nonvenomous arthropods, initial encounter; Y92.9 Unspecified place or not applicable
CPT/HCPCS: 36415; 80053; 80307; 80320; 80329; 81003; 84443; 85025; 90853; 99222; 99231; 99238; 99283; A9270-GY; G0480